=== PATIENT | female | born 1965 | race Caucasian/White ===

== ENCOUNTER 2016-12-24 13:33 | Emergency (ER) | payer BC ==
--- NOTE | 2016-12-24 14:39 | UC ---
Upper Extremity HPI - HPI Summary HPI Summary: 51 year old female presents with right elbow pain/swelling - History of Current Complaint Chief Complaint: UCUpperExtremity Stated Complaint: RIGHT ARM INJURY Time Seen by Provider: 12/24/16 14:35 Hx Obtained From: Patient Hx Last Menstrual Period: n/a Onset/Duration: Sudden Onset Severity Initially: Moderate Severity Currently: Moderate Pain Scale Used: 0-10 Numeric - 5 Character: Sharp, Throbbing Aggravating Factor(s): Movement, Lifting, Flexion, Extension - Allergies/Home Medications Allergies/Adverse Reactions: Allergies Allergy/AdvReac Type Severity Reaction Status Date / Time Clarithromycin [From Biaxin] Allergy See Comment Verified 12/24/16 14:33 Penicillins Allergy Unknown Verified 12/24/16 14:33 Reaction Details Home Medications: Home Medications Ibuprofen TAB* [Motrin TAB* 600 MG] 600 mg PO Q8H PRN 12/24/16 [History Confirmed 12/24/16] PMH/Surg Hx/FS Hx/Imm Hx Previously Healthy: Yes Other History Of: Negative For: HIV, Hepatitis B, Hepatitis C, Anticoagulant Therapy - Surgical History Surgical History: Yes Surgery Procedure, Year, and Place: c-sect - Family History Known Family History: Positive: Cardiac Disease, Hypertension - Social History Alcohol Use: None Substance Use Type: None Smoking Status (MU): Heavy Every Day Tobacco Smoker Type: Cigarettes Amount Used/How Often: 1 ppd Length of Time of Smoking/Using Tobacco: 30 YRS - Immunization History Most Recent Influenza Vaccination: [id number] Review of Systems Constitutional: Negative Skin: Negative Eyes: Negative ENT: Negative Respiratory: Negative Cardiovascular: Negative Gastrointestinal: Negative Genitourinary: Negative Motor: Negative Neurovascular: Negative Musculoskeletal: Other: - right elbow pain Neurological: Negative Psychological: Negative All Other Systems Reviewed And Are Negative: Yes Physical Exam Triage Information Reviewed: Yes Vital Signs: Initial Vital Signs Temp 36.8 C 12/24/16 14:29 Pulse 79 12/24/16 14:29 Resp 16 12/24/16 14:29 Pulse Ox 99 12/24/16 14:29 Vital Signs Reviewed: Yes Eye Exam: Normal ENT Exam: Normal Dental Exam: Normal Neck exam: Normal Neck: Positive: 1 Respiratory Exam: Normal Cardiovascular Exam: Normal Abdominal Exam: Normal Musculoskeletal: Positive: Other: - right elbow pain Neurological Exam: Normal Psychological Exam: Normal Skin Exam: Normal Upper Extremity Course/Dx - Differential Dx/Diagnosis Provider Diagnoses: right tennis elbow Discharge - Discharge Plan Condition: Stable Disposition: HOME Prescriptions: Meloxicam [Mobic] 7.5 mg PO BID PC #30 tab Patient Education Materials: Tennis Elbow (ED) Referrals: Katia Mancia PA [Primary Care Provider] - [facility] Physical therapy,PT [Medical Doctor] -
[2016-12-24 14:40] VITALS: BP 130/58
== END 2016-12-24 14:52 | disposition home or self-care (01) ==
LOC: UCCORT 13:33
DX: M77.11 Lateral epicondylitis, right elbow (principal); Z88.0 Allergy status to penicillin; F17.210 Nicotine dependence, cigarettes, uncomplicated
CPT/HCPCS: 99213; G0463

== ENCOUNTER 2017-01-02 08:34 | Emergency (ER) | payer BC ==
[2017-01-02 08:47] VITALS: BP 133/59
--- NOTE | 2017-01-02 09:09 | UC ---
Respiratory Complaint HPI - HPI Summary HPI Summary: Right sinus pain. She had a sinus infection two months ago. She has a mild cough. There is right face pain over the maxilla. - History of Current Complaint Chief Complaint: UCRespiratory Stated Complaint: SINUS Hx Obtained From: Patient Hx Last Menstrual Period: n/a ?: No Onset/Duration: Gradual Onset, Lasting Days Timing: Constant Severity Initially: Moderate Severity Currently: Moderate Character: Cough: Nonproductive Aggravating Factors: Deep Breaths, Recumbent Position Alleviating Factors: OTC Meds Associated Signs And Symptoms: Positive: URI, Nasal Congestion. Negative: Fever - Allergies/Home Medications Allergies/Adverse Reactions: Allergies Allergy/AdvReac Type Severity Reaction Status Date / Time Clarithromycin [From Biaxin] Allergy See Comment Verified 01/02/17 08:43 Penicillins Allergy Unknown Verified 01/02/17 08:43 Reaction Details Home Medications: Home Medications Ibuprofen TAB* [Advil TAB*] 600 mg PO Q6H PRN 01/02/17 [History Confirmed ] PMH/Surg Hx/FS Hx/Imm Hx Previously Healthy: No - prior sinus infection. Other History Of: Negative For: HIV, Hepatitis B, Hepatitis C, Anticoagulant Therapy - Surgical History Surgical History: Yes Surgery Procedure, Year, and Place: , 1988, [place] - Family History Known Family History: Positive: Cardiac Disease, Hypertension - Social History Lives: With Family Alcohol Use: None Substance Use Type: None Smoking Status (MU): Heavy Every Day Tobacco Smoker Type: Cigarettes Amount Used/How Often: 1 PPD Length of Time of Smoking/Using Tobacco: Since Age 13 Household Exposure Type: Cigarettes - Immunization History Most Recent Influenza Vaccination: Not the Season Review of Systems ENT: Sinus Congestion, Sinus Pain/Tenderness Respiratory: Cough All Other Systems Reviewed And Are Negative: Yes Physical Exam Triage Information Reviewed: Yes Appearance: Well-Appearing, No Pain Distress, Well-Nourished Vital Signs: Initial Vital Signs Temp 98.2 F 01/02/17 08:41 Pulse 86 01/02/17 08:41 Resp 18 01/02/17 08:41 BP 133/59 01/02/17 08:41 Pulse Ox 97 01/02/17 08:41 Vital Signs Reviewed: Yes Eyes: Positive: Conjunctiva Clear ENT: Positive: Nasal congestion, TMs normal, Other: - right maxillary sinus tenderness. Neck exam: Normal Neck: Positive: Supple, Nontender, No Lymphadenopathy Respiratory Exam: Normal Respiratory: Positive: Chest non-tender, Lungs clear, Normal breath sounds, No respiratory distress, No accessory muscle use, Respiratory distress Cardiovascular: Positive: RRR, No Murmur, Pulses Normal, Brisk Capillary Refill Abdomen Description: Positive: Nontender, No Organomegaly, Soft Musculoskeletal: Positive: Strength Intact, ROM Intact, No Edema Neurological: Positive: Alert, Muscle Tone Normal, Fatigued Skin: Negative: rashes UC Diagnostic Evaluation - Laboratory O2 Sat by Pulse Oximetry: 97 Respiratory Course/Dx - Differential Dx/Diagnosis Provider Diagnoses: right sinusitis. Discharge - Discharge Plan Condition: Good Disposition: HOME Patient Education Materials: Sinusitis (ED) Referrals: Katia Mancia PA [Primary Care Provider] - If Needed Additional Instructions: OTC decongestants. Nasal irrigation.
== END 2017-01-02 09:18 | disposition home or self-care (01) ==
LOC: UCCORT 08:34
DX: J32.9 Chronic sinusitis, unspecified (principal); F17.210 Nicotine dependence, cigarettes, uncomplicated; Z88.0 Allergy status to penicillin; Z88.1 Allergy status to other antibiotic agents
CPT/HCPCS: 99212; G0463

== ENCOUNTER 2017-02-14 18:05 | Emergency (ER) | payer BC ==
[2017-02-14 18:53] VITALS: BP 142/76
--- NOTE | 2017-02-14 20:04 | UC ---
Lower Extremity/Ankle HPI - HPI Summary HPI Summary: SEEN BY DR HEREDIA SERVICE TODAY, DIAGNOSED WITH PLANTAR FASCIITIS. CONCERN FOR TENDER SOFT TISSUE SWELLING AT HEEL AND ARCH OF FOOT - History of Current Complaint Hx Obtained From: Patient, Family/Health And Human Performance Professor Hx Last Menstrual Period: n/a Onset/Duration: Gradual Onset, Lasting Days Severity Initially: Moderate Severity Currently: Moderate Pain Intensity: 6 Pain Scale Used: 0-10 Numeric Aggravating Factor(s): Standing, Ambulation Able to Bear Weight: Yes - Risk Factors Gout Risk Factors: Negative DVT Risk Factors: Negative Septic Arthritis Risk Factor: Negative <Jeiosn Callahan - Last Filed: 02/14/17 19:59> <Viki Blankenship - Last Filed: 02/14/17 20:06> - History of Current Complaint Chief Complaint: UCLowerExtremity Stated Complaint: FOOT PAIN Time Seen by Provider: 02/14/17 19:24 - Allergies/Home Medications Allergies/Adverse Reactions: Allergies Allergy/AdvReac Type Severity Reaction Status Date / Time Clarithromycin [From Biaxin] Allergy See Comment Verified 02/14/17 18:52 Penicillins Allergy Unknown Verified 02/14/17 18:52 Reaction Details PMH/Surg Hx/FS Hx/Imm Hx Previously Healthy: Yes Other History Of: Negative For: HIV, Hepatitis B, Hepatitis C, Anticoagulant Therapy - Surgical History Surgical History: Yes Surgery Procedure, Year, and Place: , 1989, [place] - Family History Known Family History: Positive: Cardiac Disease, Hypertension - Social History Occupation: Employed Full-time Lives: With Family Alcohol Use: None Substance Use Type: None Smoking Status (MU): Heavy Every Day Tobacco Smoker Type: Cigarettes Amount Used/How Often: 1 PPD Length of Time of Smoking/Using Tobacco: Since Age 13 Household Exposure Type: Cigarettes Cessation Counseling: Patient Advised to Stop - Immunization History Most Recent Influenza Vaccination: Not the 2017/2017 Season <Jeison Callahan - Last Filed: 02/14/17 19:59> Review of Systems Constitutional: Negative Skin: Negative Eyes: Negative ENT: Negative Respiratory: Negative Cardiovascular: Negative Gastrointestinal: Negative Genitourinary: Negative Motor: Negative Neurovascular: Negative Musculoskeletal: Arthralgia, Edema, Myalgia Neurological: Negative Psychological: Negative Is Patient Immunocompromised?: No All Other Systems Reviewed And Are Negative: Yes <Jeison Callahan - Last Filed: 02/14/17 19:59> Physical Exam Triage Information Reviewed: Yes Appearance: Well-Appearing, Well-Nourished, Pain Distress Vital Signs: Initial Vital Signs Temp 98.2 F 02/14/17 18:47 Pulse 98 02/14/17 18:47 Resp 16 02/14/17 18:47 BP 142/76 02/14/17 18:47 Pulse Ox 99 02/14/17 18:47 Vital Signs Reviewed: Yes Eye Exam: Normal ENT Exam: Normal ENT: Positive: Normal ENT inspection, Hearing grossly normal, Pharynx normal Dental Exam: Normal Neck exam: Normal Neck: Positive: Supple, Nontender, No Lymphadenopathy Respiratory Exam: Normal Respiratory: Positive: Chest non-tender, Lungs clear, Normal breath sounds, No respiratory distress, No accessory muscle use Cardiovascular Exam: Normal Cardiovascular: Positive: RRR, No Murmur, Pulses Normal Abdominal Exam: Normal Musculoskeletal: Positive: Strength Intact, ROM Intact, Edema @ - HEEL AND ARCH OF RIGHT FOOT. TENDER IRREGULAR SOFT TISSUE SWELLING; NO ERYTHEMA OR LESIONS., Other: <Jeison Callahan - Last Filed: 02/14/17 19:59> Vital Signs: Initial Vital Signs Temp 98.2 F 02/14/17 18:47 Pulse 98 02/14/17 18:47 Resp 16 02/14/17 18:47 BP 142/76 02/14/17 18:47 Pulse Ox 99 02/14/17 18:47 <Viki Blankenship - Last Filed: 02/14/17 20:06> Lower Extremity Course/Dx - Differential Dx/Diagnosis Differential Diagnosis/HQI/PQRI: Sprain, Strain Provider Diagnoses: RIGHT PLANTAR FASCIITIS; HEEL AND ARCH OF RIGHT FOOT. TENDER IRREGULAR SOFT TISSUE SWELLING HEEL AND ARCH OF RIGHT FOOT. <Jeison Callahan - Last Filed: 02/14/17 19:59> Discharge <Jeison Callahan - Last Filed: 02/14/17 19:59> <Viki Blankenship - Last Filed: 02/14/17 20:06> - Discharge Plan Condition: Stable Disposition: HOME Prescriptions: HYDROcodone/ACETAMIN 5-325 MG* [Rye 5-325 TAB*] 1 tab PO Q8H PRN #12 tab MDD three tabs PRN Reason: Pain Patient Education Materials: Arthralgia (ED), Swollen Joint (ED) Referrals: Katia Mancia PA [Primary Care Provider] - Hi Dorman MD [Medical Doctor] - Images Feet (Multiple View): 1 - HEEL AND ARCH OF RIGHT FOOT. TENDER IRREGULAR SOFT TISSUE SWELLING; NO ERYTHEMA OR LESIONS. <Jeison Callahan - Last Filed: 02/14/17 19:59> Attestation Statement User Type: Provider - I was available for consult. This patient was seen by the [facility]. The patient was not presented to, seen by, or examined by me. -Essence <Viki Blankenship - Last Filed: 02/14/17 20:06>
== END 2017-02-14 19:52 | disposition home or self-care (01) ==
LOC: UCCORT 18:05
DX: M72.2 Plantar fascial fibromatosis (principal); M79.89 Other specified soft tissue disorders
CPT/HCPCS: 99213; G0463

== ENCOUNTER 2017-08-05 19:41 | Emergency (ER) | payer BC ==
[2017-08-05 20:35] VITALS: BP 145/77
--- NOTE | 2017-08-05 21:08 | UC ---
Skin Complaint HPI - HPI Summary HPI Summary: Per pharmacist per diem "c/o redness, swelling and pain to the outer edge of her fingernail on her thumb of R hand for the past 2 days. She states she pulled a hang nail the day before. No red streaks leading away from the thumb or fever. " - History of Current Complaint Chief Complaint: UCUpperExtremity Time Seen by Provider: 08/05/17 21:07 Stated Complaint: RT THUMB COMPLAINT Hx Last Menstrual Period: n/a Pain Intensity: 4 - Allergy/Home Medications Allergies/Adverse Reactions: Allergies Allergy/AdvReac Type Severity Reaction Status Date / Time Penicillins Allergy Unknown Unknown Verified 08/05/17 20:40 Reaction Details MS Clarithromycin AdvReac See Comment Verified 08/05/17 20:37 [From Biaxin] PMH/Surg Hx/FS Hx/Imm Hx Other History Of: Negative For: HIV, Hepatitis B, Hepatitis C, Anticoagulant Therapy - Surgical History Surgical History: Yes Surgery Procedure, Year, and Place: , 1989, [place] - Family History Known Family History: Positive: Cardiac Disease, Hypertension - Social History Alcohol Use: None Substance Use Type: None Smoking Status (MU): Heavy Every Day Tobacco Smoker Type: Cigarettes Amount Used/How Often: 1 PPD Length of Time of Smoking/Using Tobacco: Since Age 13 Household Exposure Type: Cigarettes - Immunization History Most Recent Influenza Vaccination: Not the Season Physical Exam Vital Signs: Initial Vital Signs Temp 98.6 F 08/05/17 20:31 Pulse 77 08/05/17 20:31 Resp 17 08/05/17 20:31 BP 145/77 08/05/17 20:31 Pulse Ox 99 08/05/17 20:31 Discharge - Sign-Out/Discharge Documenting (check all that apply): Discharge/Admit/Transfer - Discharge Plan Condition: Stable Disposition: HOME Patient Education Materials: Foot Contusion (ED) Referrals: Katia Mancia PA [Primary Care Provider] - 6 Days - Billing Disposition and Condition Condition: STABLE Disposition: HOME
== END 2017-08-05 21:23 | disposition left against medical advice (07) ==
LOC: UCCORT 19:41
DX: R29.91 Unspecified symptoms and signs involving the musculoskeletal system (principal); Z53.21 Procedure and treatment not carried out due to patient leaving prior to being seen by health care provider

== ENCOUNTER 2017-11-17 16:51 | Emergency (ER) | payer BC ==
[2017-11-17 17:19] VITALS: BP 132/50
--- NOTE | 2017-11-17 17:45 | UC ---
Throat Pain/Nasal Mode HPI - HPI Summary HPI Summary: 52 y/o female presents to the urgent care c/o sinus pressure and pain w/ clear nasal discharge since yesterday. Pt reports her daughter started w/ similar symptoms. This morning she has left side facial pressure w/ +PND and COOK. She took and Ibuprofen 600mg PO to alleviate symptoms. Pt denies fever, cough, ST, SOB, chest pain, abdominal pain, N/V/D - History of Current Complaint Chief Complaint: UCGeneralIllness Stated Complaint: COUGH, SINUSES, HEADACHE Time Seen by Provider: 11/17/17 17:09 Hx Obtained From: Patient Hx Last Menstrual Period: n/a Onset/Duration: Gradual Onset, Lasting Days - 2 days, Still Present Severity: Mild Pain Intensity: 2 Pain Scale Used: 0-10 Numeric Cough: None Associated Signs & Symptoms: Positive: Sinus Discomfort, Nasal Discharge - clear Related History: Seasonal Allergies - Epiglottits Risk Factors Epiglottis Risk Factors: Negative - Allergies/Home Medications Allergies/Adverse Reactions: Allergies Allergy/AdvReac Type Severity Reaction Status Date / Time Penicillins Allergy Unknown Unknown Verified 08/05/17 20:40 Reaction Details clarithromycin [From Biaxin] AdvReac See Comment Verified 11/17/17 17:14 PMH/Surg Hx/FS Hx/Imm Hx Previously Healthy: Yes - Pt denies PMHX Other History Of: Negative For: HIV, Hepatitis B, Hepatitis C, Anticoagulant Therapy - Surgical History Surgical History: Yes Surgery Procedure, Year, and Place: , 1989, [place] - Family History Known Family History: Positive: Cardiac Disease, Hypertension, Renal Disease - Social History Occupation: Employed Full-time Lives: With Family Alcohol Use: None Substance Use Type: None Smoking Status (MU): Heavy Every Day Tobacco Smoker Type: Cigarettes Amount Used/How Often: 1 1/2 PPD Length of Time of Smoking/Using Tobacco: Since Age 14 Household Exposure Type: Cigarettes - Immunization History Most Recent Influenza Vaccination: Not the 2016/2017 Season Review of Systems Constitutional: Negative Skin: Negative Eyes: Negative ENT: Nasal Discharge - clear, Sinus Congestion, Sinus Pain/Tenderness, Other - + PND Respiratory: Negative Cardiovascular: Negative Gastrointestinal: Negative Genitourinary: Negative Motor: Negative Neurovascular: Negative Musculoskeletal: Negative Neurological: Headache Psychological: Negative Is Patient Immunocompromised?: No All Other Systems Reviewed And Are Negative: Yes Physical Exam - Summary Physical Exam Summary: Vitals: reviewed General: Well developed, well-nourished obese female patient with NAD. Head and face: Normocephalic and atraumatic, Positive tenderness over the frontal and maxillary sinuses.. Eyes: PERRLA, EOMI x 2. Normal conjunctiva. No eye discharge. ENT: Ears and TM with normal limits. Nose: edematous and erythematous nasal mucosa with with clear discharge and erythematous mucosa. Pharynx with erythema, no exudate. Neck: Supple, no JVD, no carotid bruits and no lymphadenopathy. Lungs: clear, no rales, no rhonchi, no wheezes. CVS: RRR, S1 and S2 present no murmurs or gallops appreciated. Abdomen: soft nontender with positive bowel sounds. Extremities: no edema noted. Neuro: WNL. Skin: warm and dry Triage Information Reviewed: Yes Vital Signs: Initial Vital Signs Temp 97.8 F 11/17/17 17:12 Pulse 88 11/17/17 17:12 Resp 18 11/17/17 17:12 BP 132/50 11/17/17 17:12 Pulse Ox 100 11/17/17 17:12 Throat Pain/Nasal Course/Dx - Course Course Of Treatment: 52 y/o female presents to the urgent care c/o sinus pressure and pain w/ clear nasal discharge since yesterday. Pt reports her daughter started w/ similar symptoms. This morning she has left side facial pressure w/ +PND and COOK. She took and Ibuprofen 600mg PO to alleviate symptoms. Pt denies fever, cough, ST, SOB, chest pain, abdominal pain, N/V/D. Hx obtained. Pt w/ rhinosinusitis on examination. Pt was given medication listed below. The patient was advised to stay away of allergens. D/C instructions explained. The patient understands and agrees. - Differential Dx/Diagnosis Differential Diagnosis/HQI/PQRI: Laryngitis, Pharyngitis, Sinusitis, URI Provider Diagnoses: 1- Rhinosinusitis. 2- Headache Discharge - Sign-Out/Discharge Documenting (check all that apply): Patient Departure - D/c home All imaging exams completed and their final reports reviewed: No Studies - Discharge Plan Condition: Stable Disposition: HOME Prescriptions: Fluticasone NASAL SPRAY 50MCG* [Flonase NASAL SPRAY 50MCG*] 2 spray BOTH NARES DAILY #1 btl Loratadine/Pseudoephedrine [Loratadine-D 12 Hour Tablet] 1 each PO BID #30 tab.er.12h Patient Education Materials: Rhinosinusitis (ED) Referrals: Katia Mancia PA [Primary Care Provider] - 3 Days Additional Instructions: 1- Please increase fluid intake and rest. 2-Use Flonase as directed to help drain fluid. Use saline drops as directed to clear sinuses 3-Take Ibuprofen or Acetaminophen for fever and pain. 4-Return to the clinic or f/u w/ your PCP in 3 days if symptoms do not improve for further management. - Billing Disposition and Condition Condition: STABLE Disposition: Home - Attestation Statements Provider Attestation: Per institutional requirements, I have reviewed the chart, however, I was not consulted specifically or made aware of this patient by the midlevel provider. I did not personally evaluate, interact with , or disposition this patient.
== END 2017-11-17 17:54 | disposition home or self-care (01) ==
LOC: UCCORT 16:51
DX: J32.9 Chronic sinusitis, unspecified (principal); R51 Headache; Z88.0 Allergy status to penicillin; Z88.1 Allergy status to other antibiotic agents; F17.210 Nicotine dependence, cigarettes, uncomplicated
CPT/HCPCS: 99212; G0463

== ENCOUNTER 2019-02-19 18:33 | Emergency (ER) | payer BC ==
[2019-02-19 19:15] VITALS: BP 126/82
--- NOTE | 2019-02-19 20:24 | UC ---
Throat Pain/Nasal Mode HPI - HPI Summary HPI Summary: 53-year-old woman comes in with a chief complaint of 4 days of upper respiratory tract infection symptoms. She's got sinus pressure rhinorrhea and sinus congestion. Also having right ear pain. Minimal sore throat. No cough or chest congestion. Has been taking ibuprofen for the symptoms. - History of Current Complaint Chief Complaint: UCRespiratory Stated Complaint: SINUS COMPLAINT, HEADACHE Time Seen by Provider: 02/19/19 19:59 Hx Last Menstrual Period: n/a Pain Intensity: 4 - Allergies/Home Medications Allergies/Adverse Reactions: Allergies Allergy/AdvReac Type Severity Reaction Status Date / Time Penicillins Allergy Unknown Unknown Verified 02/19/19 19:12 Reaction Details clarithromycin [From Biaxin] AdvReac See Comment Verified 02/19/19 19:12 PMH/Surg Hx/FS Hx/Imm Hx Previously Healthy: Yes Other History Of: Negative For: HIV, Hepatitis B, Hepatitis C, Anticoagulant Therapy - Surgical History Surgical History: Yes Surgery Procedure, Year, and Place: , 1988, [place] - Family History Known Family History: Positive: Cardiac Disease, Hypertension, Renal Disease - Social History Alcohol Use: None Substance Use Type: None Smoking Status (MU): Heavy Every Day Tobacco Smoker Type: Cigarettes Amount Used/How Often: 1 1/2 PPD Length of Time of Smoking/Using Tobacco: Since Age 14 Household Exposure Type: Cigarettes - Immunization History Most Recent Influenza Vaccination: Not the 2016/2017 Season Review of Systems All Other Systems Reviewed And Are Negative: Yes Constitutional: Positive: Other - SEE HPI Skin: Positive: Negative Eyes: Positive: Negative ENT: Positive: Sore Throat, Ear Ache, Nasal Discharge, Sinus Congestion, Sinus Pain/Tenderness Respiratory: Positive: Negative Cardiovascular: Positive: Negative Gastrointestinal: Positive: Negative Motor: Positive: Negative Neurovascular: Positive: Negative Musculoskeletal: Positive: Negative Neurological: Positive: Negative Psychological: Positive: Negative Is Patient Immunocompromised?: No Physical Exam Triage Information Reviewed: Yes Appearance: No Pain Distress, Well-Nourished, Ill-Appearing - MILD Vital Signs: Initial Vital Signs Temp 96.1 F 02/19/19 19:12 Pulse 73 02/19/19 19:12 Resp 16 02/19/19 19:12 BP 126/82 02/19/19 19:12 Pulse Ox 100 02/19/19 19:12 Vital Signs Reviewed: Yes Eye Exam: Normal Eyes: Positive: Conjunctiva Clear ENT: Positive: Pharyngeal erythema, Nasal congestion, Nasal drainage, Sinus tenderness, Other - Cerumen impaction of the right ear canal. Neck: Positive: Supple Respiratory: Positive: Lungs clear, Normal breath sounds, No respiratory distress Cardiovascular: Positive: RRR Musculoskeletal: Positive: Strength Intact, ROM Intact Neurological: Positive: Alert, Muscle Tone Normal Psychological: Positive: Normal Response To Family, Age Appropriate Behavior Skin Exam: Normal Throat Pain/Nasal Course/Dx - Course Course Of Treatment: DISCUSSED VIRAL VERSES BACTERIAL INFECTIONS AND THE ROLE OF ANTIBIOTICS. THE PATIENT PREFERS TO BE ON ANTIBIOTICS AT THIS TIME. Right ear was irrigated by nursing with successful removal of cerumen. - Differential Dx/Diagnosis Provider Diagnosis: Sinusitis, Impacted cerumen, right ear Discharge ED - Sign-Out/Discharge Documenting (check all that apply): Patient Departure All imaging exams completed and their final reports reviewed: No Studies - Discharge Plan Condition: Stable Disposition: HOME Prescriptions: Azithromyxin CLAUDIA (NF) [Z-Claudia (Zithromax) 250 mg tabs #6] 2 tab PO .TODAY, THEN 1 DAILY #6 tab Patient Education Materials: Sinusitis (ED), Cerumen Impaction (ED) Referrals: Katia Mancia PA [Primary Care Provider] - Additional Instructions: FOLLOW UP WITH YOUR DOCTOR IF NOT COMPLETELY IMPROVED. GET REEVALUATED SOONER IF NOT IMPROVING OR WORSE OR ANY QUESTIONS OR CONCERNS. - Billing Disposition and Condition Condition: STABLE Disposition: Home
== END 2019-02-19 20:38 | disposition home or self-care (01) ==
LOC: UCCORT 18:33
DX: J32.9 Chronic sinusitis, unspecified (principal); H61.21 Impacted cerumen, right ear; J02.9 Acute pharyngitis, unspecified; Z88.0 Allergy status to penicillin; Z88.1 Allergy status to other antibiotic agents; F17.210 Nicotine dependence, cigarettes, uncomplicated
CPT/HCPCS: 99213; G0463

== ENCOUNTER 2019-04-29 13:53 | Emergency (ER) | payer BC ==
[2019-04-29 15:33] VITALS: BP 102/69
--- NOTE | 2019-04-29 15:48 | UC ---
Throat Pain/Nasal Mode HPI - HPI Summary HPI Summary: 54-year-old female who has had cold symptoms for 2 weeks and now with sinus pressure, postnasal drainage. She is a smoker. - History of Current Complaint Chief Complaint: UCRespiratory Stated Complaint: COUGH/SINUS Time Seen by Provider: 04/29/19 15:13 Hx Obtained From: Patient Hx Last Menstrual Period: n/a ?: No Onset/Duration: Gradual Onset, Lasting Weeks Severity: Mild Pain Intensity: 3 Cough: None Associated Signs & Symptoms: Positive: Sinus Discomfort, Nasal Discharge Related History: Smoking - Allergies/Home Medications Allergies/Adverse Reactions: Allergies Allergy/AdvReac Type Severity Reaction Status Date / Time Penicillins Allergy Unknown Unknown Verified 04/29/19 15:26 Reaction Details clarithromycin [From Biaxin] AdvReac See Comment Verified 04/29/19 15:26 Home Medications: Home Medications Ibuprofen TAB* [Advil TAB*] 600 mg PO Q6H PRN 04/29/19 [History Confirmed ] Sulfamethox/Trimethoprim DS* [Bactrim DS 800/160 TAB*] 1 tab PO BID 10 Days #20 tab 04/29/19 [Rx] PMH/Surg Hx/FS Hx/Imm Hx Previously Healthy: Yes Other History Of: Negative For: HIV, Hepatitis B, Hepatitis C, Anticoagulant Therapy - Surgical History Surgical History: Yes Surgery Procedure, Year, and Place: , 1989, [place] - Family History Known Family History: Positive: Cardiac Disease, Hypertension, Renal Disease - Social History Alcohol Use: None Substance Use Type: None Smoking Status (MU): Heavy Every Day Tobacco Smoker Type: Cigarettes Amount Used/How Often: 1 1/2 PPD Length of Time of Smoking/Using Tobacco: Since Age 14 Household Exposure Type: Cigarettes - Immunization History Most Recent Influenza Vaccination: Not the 2017/2017 Season Review of Systems All Other Systems Reviewed And Are Negative: Yes ENT: Positive: Nasal Discharge, Sinus Congestion, Sinus Pain/Tenderness Is Patient Immunocompromised?: No Physical Exam Triage Information Reviewed: Yes Appearance: Well-Appearing, No Pain Distress, Well-Nourished Vital Signs: Initial Vital Signs Temp 99 F 04/29/19 15:27 Pulse 81 04/29/19 15:27 Resp 18 04/29/19 15:27 BP 102/69 04/29/19 15:27 Pulse Ox 98 04/29/19 15:27 Vital Signs Reviewed: Yes Eyes: Positive: Conjunctiva Clear ENT: Positive: Pharynx normal - Yellow postnasal drainage, Nasal congestion, Nasal drainage - Yellow nasal coryza, TMs normal, Sinus tenderness - Tender over the maxillary sinuses bilaterally, Uvula midline Neck: Positive: Supple, Nontender, No Lymphadenopathy Respiratory: Positive: Lungs clear, Normal breath sounds, No respiratory distress, No accessory muscle use Cardiovascular: Positive: RRR, No Murmur, Pulses Normal, Brisk Capillary Refill Musculoskeletal Exam: Normal Neurological Exam: Normal Psychological Exam: Normal Skin Exam: Normal Throat Pain/Nasal Course/Dx - Course Course Of Treatment: Patient is comfortable here and in no distress. After consultation with Dr. Del Toro I'm going to treat her sinusitis with Bactrim DS one tab by mouth twice a day 10 days. Definite follow-up with her primary care provider if no improvement in 5-7 days. - Differential Dx/Diagnosis Provider Diagnosis: Sinusitis Discharge ED - Sign-Out/Discharge Documenting (check all that apply): Patient Departure All imaging exams completed and their final reports reviewed: No Studies - Discharge Plan Condition: Good Disposition: HOME Prescriptions: Sulfamethox/Trimethoprim DS* [Bactrim DS 800/160 TAB*] 1 tab PO BID 10 Days #20 tab Patient Education Materials: Sinusitis (ED) Referrals: Katia Mancia PA [Primary Care Provider] - Additional Instructions: Increase fluids, [id number] cold medicines as directed. Take the Bactrim with food. Definite follow-up with your primary care provider if no improvement in 5-7 days. Always a good plan to stop smoking. - Billing Disposition and Condition Condition: GOOD Disposition: Home
== END 2019-04-29 15:57 | disposition home or self-care (01) ==
LOC: UCCORT 13:53
DX: J32.9 Chronic sinusitis, unspecified (principal); Z88.0 Allergy status to penicillin; Z88.1 Allergy status to other antibiotic agents; F17.210 Nicotine dependence, cigarettes, uncomplicated
CPT/HCPCS: 99212; G0463

== ENCOUNTER 2019-05-31 18:45 | Emergency (ER) | payer SELFPAY ==
[2019-05-31 19:08] VITALS: BP 138/66
--- NOTE | 2019-05-31 19:30 | UC ---
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 no w/n/t. she can pronate and supinate -has some bruising today w/ tenderness at the site - History of Current Complaint Chief Complaint: UCUpperExtremity Stated Complaint: RT ARM INJURY - WC Time Seen by Provider: 05/31/19 19:08 Hx Last Menstrual Period: n/a Pain Intensity: 3 - Allergies/Home Medications Allergies/Adverse Reactions: Allergies Allergy/AdvReac Type Severity Reaction Status Date / Time Penicillins Allergy Unknown Unknown Verified 05/31/19 19:08 Reaction Details clarithromycin [From Biaxin] AdvReac See Comment Verified 05/31/19 19:08 Home Medications: Home Medications Ibuprofen TAB* [Advil TAB*] 600 mg PO Q6H PRN 04/29/19 [History Confirmed ] PMH/Surg Hx/FS Hx/Imm Hx Previously Healthy: Yes Other History Of: Negative For: HIV, Hepatitis B, Hepatitis C, Anticoagulant Therapy - Surgical History Surgical History: Yes Surgery Procedure, Year, and Place: , 1989, [facility] - Family History Known Family History: Positive: Cardiac Disease, Hypertension, Renal Disease - Social History Alcohol Use: None Substance Use Type: None Smoking Status (MU): Heavy Every Day Tobacco Smoker Type: Cigarettes Amount Used/How Often: 1 1/2 PPD Length of Time of Smoking/Using Tobacco: Since Age 14 Household Exposure Type: Cigarettes - Immunization History Most Recent Influenza Vaccination: Not the 2016/2017 Season Review of Systems All Other Systems Reviewed And Are Negative: Yes Constitutional: Positive: Negative. Negative: Fever, Chills, Fatigue Skin: Positive: Bruising Eyes: Positive: Negative ENT: Positive: Negative Respiratory: Positive: Negative Cardiovascular: Positive: Negative Gastrointestinal: Positive: Negative Motor: Positive: Decreased ROM Neurovascular: Positive: Negative. Negative: Decreased Sensation, Decreased Pulses Musculoskeletal: Positive: Arthralgia Neurological/Mental Status: Positive: Negative. Negative: Weakness, Paresthesia , Numbness Psychological: Positive: Negative Is Patient Immunocompromised?: No Physical Exam Triage Information Reviewed: Yes Completion Of Physical Exam Limited Due To: Other - I wore a surgical mask and gloves entire time. Pt had mask on most of encounter Appearance: Well-Appearing, No Pain Distress, Well-Nourished, Ill-Appearing - very pleasant Vital Signs: Initial Vital Signs Temp 98 F 05/31/19 19:04 Pulse 91 05/31/19 19:04 Resp 16 05/31/19 19:04 BP 138/66 05/31/19 19:04 Pulse Ox 98 05/31/19 19:04 Vital Signs Reviewed: Yes ENT Exam: Normal Respiratory Exam: Normal Respiratory: Positive: Lungs clear Cardiovascular Exam: Normal Cardiovascular: Positive: RRR Musculoskeletal: Positive: Other: - right extensor ulnar arm with golf ball sized area of slight welling and bruising. 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 sensation intactto light touch. CR brisk. + 2 radial and ulnar. slight swelling. Neurological Exam: Normal Psychological Exam: Normal Skin: Positive: Other - see above - mild bruise. Upper Extremity Course/Dx - Course Course Of Treatment: Rt forearm xray evaluated by me shows no frx or displacement. neg report. will be read by RAD in AM. pt understands this. -ice, rest, cock up splint. - Differential Dx/Diagnosis Differential Diagnosis/HQI/PQRI: Contusion Provider Diagnosis: Contusion of right forearm Discharge ED - Sign-Out/Discharge Documenting (check all that apply): Patient Departure All imaging exams completed and their final reports reviewed: No - Discharge Plan Condition: Stable Disposition: HOME Patient Education Materials: Contusion in Adults (ED) Referrals: Katia Mancia PA [Primary Care Provider] - 2 Weeks Additional Instructions: The xray is evaluated by me and I do not appreciate a fracture. A radiologist will be reading it in the morning and you should be getting a call if there is a discrepancy from my evaluation. Rest, ice and tylenol or ibuprofen (for short course). You deny any contraindication to ibuprofen such as high blood pressure , , kindey disease or ulcers. If the pain does not resolve in 1-2 weeks, consideration to re-xray may be indicated. Ice for 20 mins on/20mins off with a towel barrier. The cock up splint may help support it. - Billing Disposition and Condition Condition: STABLE Disposition: Home
--- NOTE | 2019-06-01 09:31 | UC ---
- Progress Note Progress Note: RADIOLOGY REPORT REVIEWED. NO EVIDENCE FOR FRACTURE. NO CHANGE IN MANAGEMENT. Course/Dx - Diagnoses Provider Diagnoses: Contusion of right forearm Discharge ED - Sign-Out/Discharge Documenting (check all that apply): Post-Discharge Follow Up All imaging exams completed and their final reports reviewed: Yes - Discharge Plan Condition: Stable Disposition: HOME Patient Education Materials: Contusion in Adults (ED) Referrals: Katia Mancia PA [Primary Care Provider] - 2 Weeks Additional Instructions: The xray is evaluated by me and I do not appreciate a fracture. A radiologist will be reading it in the morning and you should be getting a call if there is a discrepancy from my evaluation. Rest, ice and tylenol or ibuprofen (for short course). You deny any contraindication to ibuprofen such as high blood pressure , , kindey disease or ulcers. If the pain does not resolve in 1-2 weeks, consideration to re-xray may be indicated. Ice for 20 mins on/20mins off with a towel barrier. The cock up splint may help support it. - Billing Disposition and Condition Condition: STABLE Disposition: Home
== END 2019-05-31 20:10 | disposition home or self-care (01) ==
LOC: UCCORT 18:45
DX: S50.11XA Contusion of right forearm, initial encounter (principal); W19.XXXA Unspecified fall, initial encounter; Y92.9 Unspecified place or not applicable; Y99.0 Civilian activity done for income or pay; Z88.1 Allergy status to other antibiotic agents; Z88.0 Allergy status to penicillin; F17.210 Nicotine dependence, cigarettes, uncomplicated
CPT/HCPCS: 99212; G0463

== ENCOUNTER 2022-12-31 11:48 | Inpatient (IN) ==
[~2022-12-31 11:48] MED LIST: CEFEPIME IVPB SCH; NS 0.9% IVPB SCH; Piperacillin/Tazobac ADVAN 3.375 GM in NS 0.9% 100 ml BAG 100 ML IV SCH
[2022-12-31] MEDS ORDERED: Cefepime 2 GM VIAL ONE (12:42)
[2022-12-31 12:44] LABS: Urine Appearance Turbid; Urine Bilirubin Negative (Negative); Urine Blood 3+ (Negative); Urine Color Amber; Urine Glucose Negative (Negative); Urine Ketones 2+ (Negative); Urine Nitrite Positive (Negative); Urine Protein 2+(100 mg/dL) (Negative); Urine Specific Gravity 1.017 (1.002-1.030); Urine Urobilinogen Positive (Negative)
[2022-12-31 12:52] LABS: Hematocrit 27.1 % (35-45); Hemoglobin 9.4 g/dL (11.5-14.3); Mean Corpuscular Hemoglobin 35.9 pg (27-33); Mean Corpuscular Hgb Conc 34.7 g/dL (31-36); Mean Corpuscular Volume 103.4 fL (80-97); Red Blood Count 2.62 10^6/uL (3.63-4.92); Red Cell Distribution Width 19.3 % (12-17); White Blood Count 0.3 10^3/uL (3.8-11.8)
[2022-12-31 12:53] LABS: Urine Bacteria 2+ (Absent); Urine Granular Casts Present (Absent); Urine Red Blood Cell 2+(6-10/hpf) (Absent); Urine Squamous Epithelial Cell Present (Absent); Urine Transitional Epithelial Present (Absent); Urine White Blood Cell 3+(>20/hpf) (Absent)
[2022-12-31 12:54] LABS: Albumin 3.4 g/dL (3.2-5.2); Calcium 8.5 mg/dL (8.6-10.3); Magnesium 1.4 mg/dL (1.9-2.7); Potassium 3.1 mmol/L (3.5-5.0); Total Bilirubin 1.1 mg/dL (0.2-1.0)
[2022-12-31 13:00] LABS: Albumin/Globulin Ratio 1.3 (1-3); Creatinine, Serum 0.85 mg/dL (0.51-0.95); Globulin 2.7 g/dL (2-4); Total Protein 6.1 g/dL (6.4-8.9); eGFR CKD-EPI 79.9 (>60)
[2022-12-31 13:15] LABS: ABS Lymphocytes 0.3 10^3/uL (1.0-4.8); Eosinophil % 0.7 %; Lymphocyte % 92.1 %; Mean Platelet Volume 8.9 fL (7.5-11.2); Nucleated Red Blood Cells % 0.5 %/100WBC (0.0-0.8); Platelet Count 19 10^3/uL (150-450)
[2022-12-31] MEDS ORDERED: Magnesium Sulf 4 GM/100 ML IV 4,000 MG/100 ML BAG IVPB ONE ×2 (13:40→14:52)
[2022-12-31] MEDS ORDERED: Senna TAB 8.6 mg TAB PO PRN (16:24)
[2022-12-31] MEDS ORDERED: Lactated Ringers 1000 ml BAG 1,000 ML IV ONE (16:59)
[2022-12-31] MEDS: Nicotine PATCH 21 MG/24 HR PATCH TRANSDERM SCH (17:43)
[2022-12-31] MEDS: NS 0.9% 1000 ml BAG 1,000 ML IV SCH (18:40)
[2022-12-31] MEDS: Ondansetron 4 mg VIAL 2 MG/ML 2 ml VIAL IV PRN ×2 (18:49→22:47)
[2022-12-31] MEDS: Polyethylene Glycol 3350 17 GM PACKET PO SCH (21:14)
[2022-12-31] MEDS: Cefepime 2 GM in Dextrose 2 GM/50 ML BAG IV SCH (21:16)
[2023-01-01] MEDS: NS 0.9% 1000 ml BAG 1,000 ML IV SCH ×3 (05:03→23:08)
[2023-01-01] MEDS: Cefepime 2 GM in Dextrose 2 GM/50 ML BAG IV SCH ×3 (05:03→20:33)
[2023-01-01 05:48] LABS: Albumin 2.9 g/dL (3.2-5.2); Albumin/Globulin Ratio 1.5 (1-3); Calcium 7.7 mg/dL (8.6-10.3); Creatinine, Serum 0.69 mg/dL (0.51-0.95); Magnesium 1.7 mg/dL (1.9-2.7); Potassium 3.4 mmol/L (3.5-5.0); Total Bilirubin 0.8 mg/dL (0.2-1.0); Total Protein 4.9 g/dL (6.4-8.9); eGFR CKD-EPI 101.2 (>60)
[2023-01-01 06:31] LABS: ABS Lymphocytes 0.3 10^3/uL (1.0-4.8); Eosinophil % 0.7 %; Hematocrit 21.7 % (35-45); Hemoglobin 7.6 g/dL (11.5-14.3); Mean Corpuscular Volume 102.7 fL (80-97); Mean Platelet Volume 8.8 fL (7.5-11.2); Nucleated Red Blood Cells % 1.3 %/100WBC (0.0-0.8); Platelet Count 12 10^3/uL (150-450); Red Blood Count 2.11 10^6/uL (3.63-4.92); Red Cell Distribution Width 18.7 % (12-17); White Blood Count 0.3 10^3/uL (3.8-11.8)
[2023-01-01] MEDS: Ondansetron 4 mg VIAL 2 MG/ML 2 ml VIAL IV PRN ×2 (07:55→14:08)
[2023-01-01] MEDS: Nicotine PATCH 21 MG/24 HR PATCH TRANSDERM SCH (07:57)
[2023-01-01] MEDS: Polyethylene Glycol 3350 17 GM PACKET PO SCH (08:00)
[2023-01-01] MEDS ORDERED: Polyethylene Glycol 3350 17 GM PACKET PO PRN (11:09)
[2023-01-01] MEDS ORDERED: Magnesium Sulfate 2 gm BAG 2 GM/50 ML BAG IVPB ONE (11:09)
[2023-01-01] MEDS: Potassium Chlor 20 meq TAB.ER PO SCH ×2 (12:01→14:03)
[2023-01-01 13:08] LABS: Ferritin 781.4 ng/mL (11-307)
[2023-01-02] MEDS: Cefepime 2 GM in Dextrose 2 GM/50 ML BAG IV SCH ×3 (05:05→20:23)
[2023-01-02 05:38] LABS: Calcium 7.6 mg/dL (8.6-10.3); Creatinine, Serum 0.47 mg/dL (0.51-0.95); Magnesium 1.5 mg/dL (1.9-2.7); Potassium 3.2 mmol/L (3.5-5.0)
[2023-01-02 05:57] LABS: ABS Lymphocytes 0.2 10^3/uL (1.0-4.8); Eosinophil % 0.8 %; Hematocrit 20.4 % (35-45); Hemoglobin 7.2 g/dL (11.5-14.3); Lymphocyte % 71.7 %; Mean Corpuscular Hemoglobin 36.2 pg (27-33); Mean Corpuscular Hgb Conc 35.4 g/dL (31-36); Mean Corpuscular Volume 102.4 fL (80-97); Mean Platelet Volume 9.7 fL (7.5-11.2); Platelet Count 8 10^3/uL (150-450); Red Blood Count 1.99 10^6/uL (3.63-4.92); Red Cell Distribution Width 18.8 % (12-17); White Blood Count 0.3 10^3/uL (3.8-11.8)
[2023-01-02] MEDS ORDERED: Magnesium Sulf 4 GM/100 ML IV 4,000 MG/100 ML BAG IVPB ONE (07:40)
[2023-01-02] MEDS: Potassium Chlor 20 meq TAB.ER PO SCH ×3 (08:36→12:17)
[2023-01-02] MEDS: Nicotine PATCH 21 MG/24 HR PATCH TRANSDERM SCH (08:36)
[2023-01-02] MEDS: NS 0.9% 1000 ml BAG 1,000 ML IV SCH ×2 (08:53→17:30)
[2023-01-02] MEDS ORDERED: Vancomycin 1,500 MG in NS 0.9% 250 ml 250 ML IVPB ONE (09:30)
[2023-01-02] MEDS ORDERED: Vancomycin per Pharmacy 1 EA NOTE FOLLOW UP SCH (10:00)
[2023-01-02 11:47] LABS: Platelet Count 19 10^3/uL (150-450)
[2023-01-02] MEDS: Vancomycin 1,250 MG in NS 0.9% 250 ml 250 ML IVPB SCH (22:05)
[2023-01-03] MEDS: NS 0.9% 1000 ml BAG 1,000 ML IV SCH ×2 (01:43→11:07)
[2023-01-03] MEDS: Cefepime 2 GM in Dextrose 2 GM/50 ML BAG IV SCH ×3 (05:07→20:18)
[2023-01-03 05:41] LABS: C Reactive Protein 353.58 mg/L (<8.01); Calcium 7.6 mg/dL (8.6-10.3); Creatinine, Serum 0.48 mg/dL (0.51-0.95); Magnesium 1.5 mg/dL (1.9-2.7); Potassium 3.2 mmol/L (3.5-5.0); eGFR CKD-EPI 110.4 (>60)
[2023-01-03 06:18] LABS: ABS Lymphocytes 0.2 10^3/uL (1.0-4.8); ABS Neutrophils 0.3 10^3/uL (1.5-7.6); Anisocytosis 1+; Eosinophil % 0.6 %; Hematocrit 20.1 % (35-45); Lymphocyte % 37.8 %; Macrocytosis 1+; Mean Corpuscular Hemoglobin 35.9 pg (27-33); Mean Corpuscular Hgb Conc 35.1 g/dL (31-36); Mean Corpuscular Volume 102.3 fL (80-97); Mean Platelet Volume 8.6 fL (7.5-11.2); Nucleated Red Blood Cells % 0.5 %/100WBC (0.0-0.8); Platelet Count 15 10^3/uL (150-450); Red Blood Count 1.96 10^6/uL (3.63-4.92); Red Cell Distribution Width 19.1 % (12-17); Tear Drop Cells 1+; White Blood Count 0.6 10^3/uL (3.8-11.8)
[2023-01-03] MEDS ORDERED: Magnesium Sulf 4 GM/100 ML IV 4,000 MG/100 ML BAG IVPB ONE (07:52)
[2023-01-03] MEDS: Potassium Chlor 20 meq TAB.ER PO SCH ×4 (08:39→16:46)
[2023-01-03] MEDS: Nicotine PATCH 21 MG/24 HR PATCH TRANSDERM SCH (08:39)
[2023-01-03] MEDS ORDERED: IRON VITAMIN C PO SCH (09:00)
[2023-01-03] MEDS: Vancomycin 1,250 MG in NS 0.9% 250 ml 250 ML IVPB SCH ×2 (10:05→21:54)
[2023-01-03] MEDS ORDERED: Potassium Chloride LIQUID 20 MEQ/15 ML LIQUID PO SCH (12:00)
[2023-01-03] MEDS: Nystatin TOP POWDER 15 GM BTL TOPICAL SCH ×2 (14:34→20:22)
[2023-01-04] MEDS: NS 0.9% 1000 ml BAG 1,000 ML IV SCH (00:59)
[2023-01-04] MEDS: Cefepime 2 GM in Dextrose 2 GM/50 ML BAG IV SCH ×3 (04:31→20:07)
[2023-01-04 05:25] LABS: Calcium 7.7 mg/dL (8.6-10.3); Creatinine, Serum 0.52 mg/dL (0.51-0.95); Magnesium 1.6 mg/dL (1.9-2.7); Potassium 3.3 mmol/L (3.5-5.0); eGFR CKD-EPI 108.3 (>60)
[2023-01-04 06:52] LABS: ABS Lymphocytes 0.3 10^3/uL (1.0-4.8); ABS Monocytes 0.1 10^3/uL (0.0-0.9); ABS Neutrophils 0.9 10^3/uL (1.5-7.6); Eosinophil % 0.3 %; Lymphocyte % 20.7 %; Mean Corpuscular Hemoglobin 35.9 pg (27-33); Mean Corpuscular Hgb Conc 34.9 g/dL (31-36); Mean Corpuscular Volume 102.8 fL (80-97); Mean Platelet Volume 8.7 fL (7.5-11.2); Nucleated Red Blood Cells % 0.1 %/100WBC (0.0-0.8); Platelet Count 16 10^3/uL (150-450); Red Blood Count 1.94 10^6/uL (3.63-4.92); Red Cell Distribution Width 19.7 % (12-17); White Blood Count 1.3 10^3/uL (3.8-11.8)
[2023-01-04] MEDS ORDERED: Magnesium Sulf 4 GM/100 ML IV 4,000 MG/100 ML BAG IVPB ONE (07:19)
[2023-01-04] MEDS: Potassium Chlor 20 meq TAB.ER PO SCH ×3 (08:25→11:41)
[2023-01-04] MEDS: Nicotine PATCH 21 MG/24 HR PATCH TRANSDERM SCH (08:27)
[2023-01-04] MEDS: Nystatin TOP POWDER 15 GM BTL TOPICAL SCH ×3 (08:30→20:13)
[2023-01-04] MEDS ORDERED: Vancomycin Trough Check NOTE FOLLOW UP ONE (09:30)
[2023-01-04 10:43] LABS: Creatinine, Serum 0.51 mg/dL (0.51-0.95); eGFR CKD-EPI 108.8 (>60)
[2023-01-04 10:56] LABS: Vancomycin Trough 10.2 mcg/mL
[2023-01-04] MEDS: Vancomycin 1,250 MG in NS 0.9% 250 ml 250 ML IVPB SCH (11:42)
[2023-01-05] MEDS: Cefepime 2 GM in Dextrose 2 GM/50 ML BAG IV SCH ×3 (05:11→19:48)
[2023-01-05 05:37] LABS: Hematocrit 21.3 % (35-45); Hemoglobin 7.4 g/dL (11.5-14.3); Mean Corpuscular Hemoglobin 35.4 pg (27-33); Mean Corpuscular Hgb Conc 34.6 g/dL (31-36); Mean Corpuscular Volume 102.3 fL (80-97); Mean Platelet Volume 9.3 fL (7.5-11.2); Platelet Count 25 10^3/uL (150-450); Red Blood Count 2.08 10^6/uL (3.63-4.92); Red Cell Distribution Width 19.1 % (12-17); White Blood Count 2.1 10^3/uL (3.8-11.8)
[2023-01-05 05:50] LABS: Calcium 7.9 mg/dL (8.6-10.3); Magnesium 1.5 mg/dL (1.9-2.7); Potassium 3.8 mmol/L (3.5-5.0)
[2023-01-05 05:55] LABS: C Reactive Protein 250.64 mg/L (<8.01); Creatinine, Serum 0.48 mg/dL (0.51-0.95); eGFR CKD-EPI 110.4 (>60)
[2023-01-05 06:12] LABS: ABS Lymphocytes 0.5 10^3/uL (1.0-4.8); ABS Monocytes 0.2 10^3/uL (0.0-0.9); ABS Neutrophils 1.4 10^3/uL (1.5-7.6); ABS Nucleated RBC 0.01 10^3/ul; Eosinophil % 0.3 %; Lymphocyte % 24.4 %; Nucleated Red Blood Cells % 0.3 %/100WBC (0.0-0.8)
[2023-01-05] MEDS: Nicotine PATCH 21 MG/24 HR PATCH TRANSDERM SCH (09:38)
[2023-01-05] MEDS ORDERED: NS 0.9% 1000 ml BAG 1,000 ML IV ONE (10:46)
[2023-01-05] MEDS ORDERED: Magnesium Sulf 4 GM/100 ML IV 4,000 MG/100 ML BAG IVPB ONE (10:46)
[2023-01-05] MEDS: Nystatin TOP POWDER 15 GM BTL TOPICAL SCH ×3 (11:08→20:01)
[2023-01-05] MEDS ORDERED: Iohexol 350 (CONTRAST) 500 ML MDV IV ONE (11:56)
[2023-01-05] MEDS ORDERED: Metoprolol Tartrate 5 mg VIAL 5 ml VIAL (1 mg/ml) IV ONE (15:06)
[2023-01-06] MEDS ORDERED: Alteplase (CATHFLO) 2 MG VIAL IV ONE (01:19)
[2023-01-06 01:45] LABS: Hematocrit 25.1 % (35-45); Hemoglobin 8.8 g/dL (11.5-14.3)
[2023-01-06] MEDS ORDERED: Metoprolol Tartrate 5 mg VIAL 5 ml VIAL (1 mg/ml) IV ONE (06:06)
[2023-01-06] MEDS: Cefepime 2 GM in Dextrose 2 GM/50 ML BAG IV SCH ×3 (06:22→21:20)
[2023-01-06 06:39] LABS: Hematocrit 25.6 % (35-45); Hemoglobin 9.1 g/dL (11.5-14.3); Mean Corpuscular Hemoglobin 34.8 pg (27-33); Mean Corpuscular Hgb Conc 35.8 g/dL (31-36); Mean Corpuscular Volume 97.3 fL (80-97); Red Blood Count 2.63 10^6/uL (3.63-4.92); Red Cell Distribution Width 19.6 % (12-17); White Blood Count 2.8 10^3/uL (3.8-11.8)
[2023-01-06 06:55] LABS: Calcium 7.8 mg/dL (8.6-10.3); Magnesium 1.6 mg/dL (1.9-2.7); Potassium 3.1 mmol/L (3.5-5.0)
[2023-01-06 07:01] LABS: Creatinine, Serum 0.52 mg/dL (0.51-0.95); eGFR CKD-EPI 108.3 (>60)
[2023-01-06 07:13] LABS: ABS Lymphocytes 0.7 10^3/uL (1.0-4.8); ABS Monocytes 0.3 10^3/uL (0.0-0.9); ABS Neutrophils 1.8 10^3/uL (1.5-7.6); ABS Nucleated RBC 0.01 10^3/ul; Anisocytosis 1+; Eosinophil % 0.3 %; Lymphocyte % 23.6 %; Mean Platelet Volume 9.4 fL (7.5-11.2); Nucleated Red Blood Cells % 0.2 %/100WBC (0.0-0.8); Platelet Count 34 10^3/uL (150-450)
[2023-01-06] MEDS ORDERED: Magnesium Sulf 4 GM/100 ML IV 4,000 MG/100 ML BAG IVPB ONE (08:00)
[2023-01-06] MEDS ORDERED: Lactated Ringers 1000 ml BAG 1,000 ML IV SCH (09:00)
[2023-01-06] MEDS: Potassium Chlor 20 meq TAB.ER PO SCH ×2 (09:29→10:58)
[2023-01-06] MEDS: Nicotine PATCH 21 MG/24 HR PATCH TRANSDERM SCH (09:32)
[2023-01-06] MEDS: Nystatin TOP POWDER 15 GM BTL TOPICAL SCH ×3 (09:36→21:21)
[2023-01-06] MEDS ORDERED: Lidocaine 4% CREAM (LMX) 5 GM TUBE TOPICAL ONE (20:51)
[2023-01-07] MEDS: Acetaminophen IV 1 GM/100ML 1,000 MG/100 ML BAG IV PRN ×4 (02:30→21:23)
[2023-01-07] MEDS ORDERED: Lidocaine 4% CREAM (LMX) 5 GM TUBE TOPICAL ONE (05:00)
[2023-01-07] MEDS: Cefepime 2 GM in Dextrose 2 GM/50 ML BAG IV SCH ×3 (05:39→20:54)
[2023-01-07 06:28] LABS: C Reactive Protein 239.56 mg/L (<8.01); Calcium 7.5 mg/dL (8.6-10.3); Creatinine, Serum 0.62 mg/dL (0.51-0.95); Magnesium 1.8 mg/dL (1.9-2.7); eGFR CKD-EPI 103.8 (>60)
[2023-01-07] MEDS ORDERED: Magnesium Sulf 4 GM/100 ML IV 4,000 MG/100 ML BAG IVPB ONE (07:12)
[2023-01-07] MEDS ORDERED: Vancomycin 1,250 MG in NS 0.9% 250 ml 250 ML IVPB ONE (07:30)
[2023-01-07] MEDS ORDERED: Vancomycin per Pharmacy 1 EA NOTE FOLLOW UP SCH (08:00)
[2023-01-07 09:07] LABS: Phosphorus 1.7 mg/dL (2.5-5.0)
[2023-01-07] MEDS ORDERED: Vancomycin Trough Check NOTE FOLLOW UP ONE (09:30)
[2023-01-07] MEDS: Nicotine PATCH 21 MG/24 HR PATCH TRANSDERM SCH (09:45)
[2023-01-07] MEDS: Potassium Chlor 20 meq TAB.ER PO SCH ×2 (09:47→13:37)
[2023-01-07] MEDS: Nystatin TOP POWDER 15 GM BTL TOPICAL SCH ×3 (09:47→21:28)
[2023-01-07 10:04] LABS: ABS Lymphocytes 0.5 10^3/uL (1.0-4.8); ABS Monocytes 0.4 10^3/uL (0.0-0.9); ABS Neutrophils 3.7 10^3/uL (1.5-7.6); ABS Nucleated RBC 0.01 10^3/ul; Anisocytosis 2+; Eosinophil % 0.1 %; Hematocrit 25.8 % (35-45); Lymphocyte % 10.1 %; Mean Corpuscular Hemoglobin 34.5 pg (27-33); Mean Corpuscular Hgb Conc 35.1 g/dL (31-36); Mean Corpuscular Volume 98.2 fL (80-97); Mean Platelet Volume 10.7 fL (7.5-11.2); Nucleated Red Blood Cells % 0.1 %/100WBC (0.0-0.8); Platelet Count 44 10^3/uL (150-450); Red Blood Count 2.62 10^6/uL (3.63-4.92); Red Cell Distribution Width 19.6 % (12-17); White Blood Count 4.6 10^3/uL (3.8-11.8)
[2023-01-07] MEDS ORDERED: Potassium Phosphate IV 30 MMOL in NS 0.9% 250 ml 250 ML IVPB ONE (10:15)
[2023-01-07] MEDS: NS 0.9% 1000 ml BAG 1,000 ML IV SCH (13:38)
[2023-01-07] MEDS ORDERED: Ondansetron 4 mg VIAL 2 MG/ML 2 ml VIAL IV PRN (16:27)
[2023-01-07] MEDS ORDERED: Iohexol 350 (CONTRAST) 500 ML MDV IV ONE (16:36)
[2023-01-07] MEDS: Vancomycin 1,500 MG in NS 0.9% 250 ml 250 ML IVPB SCH (19:04)
[2023-01-07] MEDS ORDERED: Metoprolol Tartrate 5 mg VIAL 5 ml VIAL (1 mg/ml) IV PRN (21:11)
[2023-01-07 22:12] LABS: Urine Appearance Cloudy; Urine Bilirubin Negative (Negative); Urine Blood 2+ (Negative); Urine Color Yellow; Urine Glucose Negative (Negative); Urine Ketones 1+ (Negative); Urine Nitrite Negative (Negative); Urine Protein Negative (Negative); Urine Specific Gravity 1.044 (1.002-1.030); Urine Urobilinogen Negative (Negative)
[2023-01-07 22:19] LABS: Urine Creatinine Concentration 50.38 mg/dL (20.00-320.00)
[2023-01-07 22:20] LABS: Urine Bacteria Absent (Absent); Urine Red Blood Cell 1+(3-5/hpf) (Absent); Urine Squamous Epithelial Cell Present (Absent); Urine White Blood Cell Absent (Absent)
[2023-01-07 22:30] LABS: Urine Osmo 430 mOsm/kg (150-1150)
[2023-01-07 22:57] LABS: TSH Ultra Thyroid Stim Horm 2.89 mcIU/mL (0.34-5.60)
[2023-01-07 22:59] LABS: Free T4 1.48 ng/dL (0.61-1.12)
[2023-01-08] MEDS: Acetaminophen IV 1 GM/100ML 1,000 MG/100 ML BAG IV PRN ×2 (04:04→14:02)
[2023-01-08] MEDS: Cefepime 2 GM in Dextrose 2 GM/50 ML BAG IV SCH ×2 (05:09→14:33)
[2023-01-08] MEDS: NS 0.9% 1000 ml BAG 1,000 ML IV SCH ×3 (05:18→11:28)
[2023-01-08 05:54] LABS: Albumin 2.4 g/dL (3.2-5.2); Albumin/Globulin Ratio 1.3 (1-3); Calcium 6.3 mg/dL (8.6-10.3); Creatinine, Serum 0.6 mg/dL (0.51-0.95); Globulin 1.8 g/dL (2-4); Magnesium 1.8 mg/dL (1.9-2.7); Potassium 3.4 mmol/L (3.5-5.0); Total Bilirubin 0.8 mg/dL (0.2-1.0); Total Protein 4.2 g/dL (6.4-8.9); eGFR CKD-EPI 104.6 (>60)
[2023-01-08] MEDS: Vancomycin 1,500 MG in NS 0.9% 250 ml 250 ML IVPB SCH ×2 (06:05→19:31)
[2023-01-08] MEDS ORDERED: CALCIUM GLUCONATE 1GM/50ML NS 1 GM/50 ML BAG IV ONE (08:59)
[2023-01-08] MEDS: Nicotine PATCH 21 MG/24 HR PATCH TRANSDERM SCH (09:09)
[2023-01-08] MEDS: Nystatin TOP POWDER 15 GM BTL TOPICAL SCH ×3 (10:09→19:18)
[2023-01-08 10:45] LABS: Hemoglobin 7.9 g/dL (11.5-14.3); Mean Corpuscular Hemoglobin 34.5 pg (27-33); Mean Corpuscular Hgb Conc 34.3 g/dL (31-36); Mean Corpuscular Volume 100.4 fL (80-97); Mean Platelet Volume 11.1 fL (7.5-11.2); Platelet Count 49 10^3/uL (150-450); Red Blood Count 2.29 10^6/uL (3.63-4.92); Red Cell Distribution Width 19.7 % (12-17); White Blood Count 7.7 10^3/uL (3.8-11.8)
[2023-01-08] MEDS ORDERED: metroNIDAZOLE IV 500 MG/100ML 500 MG/100 ML BAG IVPB SCH (11:00)
[2023-01-08 11:17] LABS: ABS Lymphocytes 0.5 10^3/uL (1.0-4.8); ABS Monocytes 0.1 10^3/uL (0.0-0.9); ABS Nucleated RBC 0.01 10^3/ul; Eosinophil % 0.1 %; Nucleated Red Blood Cells % 0.2 %/100WBC (0.0-0.8); RBC Morphology Normal (Normal); Toxic Granulation 1+
[2023-01-08 13:54] LABS: PCO2 Arterial 22 mmHg (35-45); PO2 Arterial 94 mmHg (80-100)
[2023-01-08] MEDS: Vancomycin SOL ORALSYR 50 MG/ML ML PO SCH ×3 (14:02→21:01)
[2023-01-08] MEDS ORDERED: Norepinephrine 4 MG/250mL D5W 4,000 MCG/250 ML BAG IV ONE (14:29)
[2023-01-08] MEDS ORDERED: Anidulafungin 200 MG in NS 0.9% 250 ml 200 ML IVPB ONE (15:00)
[2023-01-08] MEDS: Norepinephrine 4 MG/250mL D5W 4,000 MCG/250 ML BAG IV SCH ×2 (15:07→18:42)
[2023-01-08 15:47] LABS: Albumin 2.3 g/dL (3.2-5.2); Albumin/Globulin Ratio 1.4 (1-3); Calcium 6.5 mg/dL (8.6-10.3); Creatinine, Serum 0.87 mg/dL (0.51-0.95); Globulin 1.7 g/dL (2-4); Magnesium 1.6 mg/dL (1.9-2.7); Potassium 3.7 mmol/L (3.5-5.0); Total Bilirubin 0.8 mg/dL (0.2-1.0); eGFR CKD-EPI 77.7 (>60)
[2023-01-08] MEDS ORDERED: Calcium Gluconate 2 GM in NS 0.9% 100 ml BAG 100 ML IV ONE (16:06)
[2023-01-08] MEDS ORDERED: Magnesium Sulfate 2 gm BAG 2 GM/50 ML BAG IVPB ONE (16:06)
[2023-01-08] MEDS: Meropenem 1 GM PREMIX(*) 1 GM/50 ML BAG IV SCH ×2 (16:18→23:21)
[2023-01-08] MEDS ORDERED: Dextrose 50% Syringe 50 ml 25 GM/50 ML SYRINGE IV PUSH PRN (16:34)
[2023-01-08] MEDS ORDERED: Dextrose 50% Syringe 50 ml 25 GM/50 ML SYRINGE ONE (16:35)
[2023-01-08] MEDS ORDERED: Sodium Phosphate IV 30 MMOL in NS 0.9% 250 ml 250 ML IV ONE (17:00)
[2023-01-08] MEDS: Sulfamethoxazole/Trimeth IV 500 MG in D5W 500 ml BAG 500 ML IVPB SCH (18:23)
[2023-01-08] MEDS: Famotidine IV 10 MG/ML 2 ml VIAL (20 mg) IV SLOW PU SCH (19:16)
[2023-01-09 00:44] LABS: Albumin 2.1 g/dL (3.2-5.2); Albumin/Globulin Ratio 1.3 (1-3); Calcium 6.5 mg/dL (8.6-10.3); Creatinine, Serum 0.77 mg/dL (0.51-0.95); Globulin 1.6 g/dL (2-4); Potassium 3.5 mmol/L (3.5-5.0); Total Bilirubin 1.1 mg/dL (0.2-1.0); Total Protein 3.7 g/dL (6.4-8.9); eGFR CKD-EPI 89.9 (>60)
[2023-01-09] MEDS: Norepinephrine 4 MG/250mL D5W 4,000 MCG/250 ML BAG IV SCH ×5 (01:14→17:09)
[2023-01-09] MEDS: Sulfamethoxazole/Trimeth IV 500 MG in D5W 500 ml BAG 500 ML IVPB SCH ×2 (02:06→10:13)
[2023-01-09] MEDS ORDERED: Vancomycin Trough Check NOTE FOLLOW UP ONE (05:30)
[2023-01-09 06:03] LABS: Hematocrit 20.4 % (35-45); Hemoglobin 7.1 g/dL (11.5-14.3); Mean Corpuscular Hemoglobin 34.1 pg (27-33); Mean Corpuscular Hgb Conc 34.6 g/dL (31-36); Mean Corpuscular Volume 98.7 fL (80-97); Mean Platelet Volume 10.3 fL (7.5-11.2); Platelet Count 53 10^3/uL (150-450); Red Blood Count 2.07 10^6/uL (3.63-4.92); Red Cell Distribution Width 20.1 % (12-17); White Blood Count 8.4 10^3/uL (3.8-11.8)
[2023-01-09 06:19] LABS: Vancomycin Trough 22.3 mcg/mL
[2023-01-09 06:26] LABS: Calcium 6.3 mg/dL (8.6-10.3); Creatinine, Serum 0.86 mg/dL (0.51-0.95); Potassium 3.1 mmol/L (3.5-5.0); eGFR CKD-EPI 78.7 (>60)
[2023-01-09 06:27] LABS: Albumin 2.1 g/dL (3.2-5.2); Albumin/Globulin Ratio 1.4 (1-3); Globulin 1.5 g/dL (2-4); Phosphorus 2.4 mg/dL (2.5-5.0); Total Protein 3.6 g/dL (6.4-8.9)
[2023-01-09] MEDS ORDERED: Magnesium Sulfate 2 gm BAG 2 GM/50 ML BAG IVPB ONE (06:50)
[2023-01-09] MEDS: Vancomycin 1,500 MG in NS 0.9% 250 ml 250 ML IVPB SCH (07:17)
[2023-01-09] MEDS: Meropenem 1 GM PREMIX(*) 1 GM/50 ML BAG IV SCH ×2 (07:21→16:42)
[2023-01-09] MEDS: KCL 20 MEQ/100 ML IVPREMIX 20 MEQ/100 ML BAG IV SCH ×2 (07:21→09:47)
[2023-01-09 07:23] LABS: ABS Lymphocytes 0.3 10^3/uL (1.0-4.8); ABS Monocytes 0.2 10^3/uL (0.0-0.9); ABS Neutrophils 7.8 10^3/uL (1.5-7.6); ABS Nucleated RBC 0.02 10^3/ul; Anisocytosis 2+; Eosinophil % 0.1 %; Nucleated Red Blood Cells % 0.2 %/100WBC (0.0-0.8); Polychromasia 1+
[2023-01-09] MEDS: Vancomycin SOL ORALSYR 50 MG/ML ML PO SCH ×2 (08:39→12:21)
[2023-01-09] MEDS: Nicotine PATCH 21 MG/24 HR PATCH TRANSDERM SCH (08:39)
[2023-01-09] MEDS: Famotidine IV 10 MG/ML 2 ml VIAL (20 mg) IV SLOW PU SCH ×2 (08:39→21:31)
[2023-01-09] MEDS: Nystatin TOP POWDER 15 GM BTL TOPICAL SCH ×3 (08:39→21:31)
[2023-01-09] MEDS: Acetaminophen IV 1 GM/100ML 1,000 MG/100 ML BAG IV PRN (08:57)
[2023-01-09 09:15] LABS: INR 3.37 (0.83-1.13)
[2023-01-09] MEDS ORDERED: Vasopressin 100 UNITS in D5W 250 ml BAG 245 ML IV SCH (09:30)
[2023-01-09] MEDS ORDERED: VASOPRESSIN IVPREMIX BTL 40 UNIT/100 ML BTL IV SCH (09:52)
[2023-01-09] MEDS: Hydrocortisone INJ 100 MG/2ML 2 ML VIAL IV SCH ×3 (09:57→21:31)
[2023-01-09 10:19] LABS: Hepatitis B Surface Antigen Nonreactive (Nonreactive)
[2023-01-09 10:24] LABS: Hepatitis A Ab IgM Negative (Negative)
[2023-01-09 10:25] LABS: Hepatitis B Core IgM Nonreactive (Nonreactive)
[2023-01-09 10:37] LABS: Hepatitis C Antibody Negative (Negative)
[2023-01-09] MEDS ORDERED: Sodium Phosphate IV 30 MMOL in NS 0.9% 250 ml 250 ML IV ONE (11:09)
[2023-01-09 11:17] LABS: Adenovirus Undetected (Undetected); Bordetella parapertussis Undetected (Undetected); Bordetella pertussis Undetected (Undetected); Chlamydophila pneumoniae Undetected (Undetected); Coronavirus 229E Undetected (Undetected); Coronavirus HKU1 Undetected (Undetected); Coronavirus NL63 Undetected (Undetected); Coronavirus OC43 Undetected (Undetected); Human Metapneumovirus Undetected (Undetected); Human Rhinovirus/Enterovirus Undetected (Undetected); Influenza A Undetected (Undetected); Influenza B Undetected (Undetected); Mycoplasmoides pneumoniae Undetected (Undetected); Parainfluenza Virus 1 Undetected (Undetected); Parainfluenza Virus 2 Undetected (Undetected); Parainfluenza Virus 3 Undetected (Undetected); Parainfluenza Virus 4 Undetected (Undetected); Respiratory Syncytial Virus Undetected (Undetected); Specimen Source NASOPHARYNGEAL SWAB
[2023-01-09] MEDS ORDERED: Enoxaparin 40 MG/0.4 ML SYR SUBCUT SCH (13:00)
[2023-01-09] MEDS: Anidulafungin 100 MG in NS 0.9% 100 ml BAG 100 ML IVPB SCH (14:26)
[2023-01-09 14:45] LABS: Immature Retic Fraction 0.59
[2023-01-09 14:48] LABS: RBC Retic Count 2.08 10^6/ul (3.63-4.92)
[2023-01-09 14:57] LABS: Albumin 2.1 g/dL (3.2-5.2); Albumin/Globulin Ratio 1.4 (1-3); Calcium 6.2 mg/dL (8.6-10.3); Creatinine, Serum 1.14 mg/dL (0.51-0.95); Globulin 1.5 g/dL (2-4); Phosphorus 3.5 mg/dL (2.5-5.0); Total Bilirubin 1.1 mg/dL (0.2-1.0); Total Protein 3.6 g/dL (6.4-8.9); eGFR CKD-EPI 56.1 (>60)
[2023-01-09 15:00] LABS: Corrected Retic Count 0.9 % (0.5-2.2); Hematocrit for Retic CNT 20.4 % (35-45)
[2023-01-09] MEDS ORDERED: Oral Rinse (Biotene)(NF) 237 ML or 473 ML ORAL RINSE BTL MT SCH (15:00)
[2023-01-09 15:15] LABS: Folate 12.38 ng/mL (5.90-24.80)
[2023-01-09] MEDS: Albumin Human 25% 25 GM/100 ML BTL IV SCH ×2 (16:41→21:29)
[2023-01-09] MEDS ORDERED: Acetaminophen IV 1 GM/100ML 1,000 MG/100 ML BAG IV PRN (17:00)
[2023-01-09 21:35] LABS: Urine Appearance Cloudy; Urine Bilirubin Negative (Negative); Urine Blood 2+ (Negative); Urine Color Yellow; Urine Glucose 1+(50 mg/dL) (Negative); Urine Ketones Negative (Negative); Urine Nitrite Negative (Negative); Urine Protein 1+(30 mg/dL) (Negative); Urine Specific Gravity 1.013 (1.002-1.030); Urine Urobilinogen Negative (Negative)
[2023-01-09 21:38] LABS: Urine Bacteria 1+ (Absent); Urine Granular Casts Present (Absent); Urine Red Blood Cell 1+(3-5/hpf) (Absent); Urine Squamous Epithelial Cell Present (Absent); Urine White Blood Cell Trace(0-5/hpf) (Absent)
[2023-01-09 21:45] LABS: Albumin 2.6 g/dL (3.2-5.2); Potassium 3.7 mmol/L (3.5-5.0); Total Bilirubin 1.2 mg/dL (0.2-1.0)
[2023-01-09 21:46] LABS: Calcium 6.2 mg/dL (8.6-10.3)
[2023-01-09 21:55] LABS: Albumin/Globulin Ratio 1.9 (1-3); Creatinine, Serum 1.24 mg/dL (0.51-0.95); Globulin 1.4 g/dL (2-4); eGFR CKD-EPI 50.8 (>60)
[2023-01-10] MEDS: Meropenem 1 GM PREMIX(*) 1 GM/50 ML BAG IV SCH ×4 (00:37→23:20)
[2023-01-10] MEDS: Nicotine PATCH 21 MG/24 HR PATCH TRANSDERM SCH ×2 (01:29→09:17)
[2023-01-10 04:46] LABS: Hematocrit 19.3 % (35-45); Hemoglobin 6.7 g/dL (11.5-14.3); Mean Corpuscular Hemoglobin 33.6 pg (27-33); Mean Corpuscular Hgb Conc 34.4 g/dL (31-36); Mean Corpuscular Volume 97.7 fL (80-97); Platelet Count 48 10^3/uL (150-450); Red Blood Count 1.98 10^6/uL (3.63-4.92); Red Cell Distribution Width 19.9 % (12-17); White Blood Count 11.2 10^3/uL (3.8-11.8)
[2023-01-10 04:51] LABS: INR 3.29 (0.83-1.13)
[2023-01-10 04:59] LABS: Albumin 2.9 g/dL (3.2-5.2); Calcium 6.5 mg/dL (8.6-10.3); Magnesium 2.6 mg/dL (1.9-2.7); Potassium 3.6 mmol/L (3.5-5.0); Total Bilirubin 1.4 mg/dL (0.2-1.0)
[2023-01-10 05:05] LABS: Creatinine, Serum 1.26 mg/dL (0.51-0.95); eGFR CKD-EPI 49.8 (>60)
[2023-01-10 05:08] LABS: ABS Basophils 0.1 10^3/uL (0.0-0.1); ABS Lymphocytes 0.5 10^3/uL (1.0-4.8); ABS Monocytes 0.4 10^3/uL (0.0-0.9); ABS Neutrophils 10.1 10^3/uL (1.5-7.6); ABS Nucleated RBC 0.01 10^3/ul; Lymphocyte % 4.9 %; Nucleated Red Blood Cells % 0.1 %/100WBC (0.0-0.8)
[2023-01-10] MEDS: Hydrocortisone INJ 100 MG/2ML 2 ML VIAL IV SCH ×4 (05:20→21:56)
[2023-01-10] MEDS: Albumin Human 25% 25 GM/100 ML BTL IV SCH ×2 (05:20→10:30)
[2023-01-10 05:45] LABS: Albumin/Globulin Ratio 2.2 (1-3); Globulin 1.3 g/dL (2-4); Phosphorus 3.8 mg/dL (2.5-5.0); Total Protein 4.2 g/dL (6.4-8.9)
[2023-01-10] MEDS ORDERED: Vancomycin Random Level NOTE FOLLOW UP ONE (06:00)
[2023-01-10] MEDS: Famotidine IV 10 MG/ML 2 ml VIAL (20 mg) IV SLOW PU SCH ×2 (08:47→21:55)
[2023-01-10] MEDS: Nystatin TOP POWDER 15 GM BTL TOPICAL SCH ×3 (10:32→21:56)
[2023-01-10 10:48] LABS: Calcium 6.5 mg/dL (8.6-10.3); Creatinine, Serum 1.31 mg/dL (0.51-0.95); Potassium 3.7 mmol/L (3.5-5.0); eGFR CKD-EPI 47.5 (>60)
[2023-01-10 10:50] LABS: Total Bilirubin 1.5 mg/dL (0.2-1.0)
[2023-01-10 11:26] LABS: Calcium 6.7 mg/dL (8.6-10.3); Creatinine, Serum 1.32 mg/dL (0.51-0.95); Potassium 3.5 mmol/L (3.5-5.0); eGFR CKD-EPI 47.1 (>60)
[2023-01-10 11:28] LABS: Albumin 3.1 g/dL (3.2-5.2); Albumin/Globulin Ratio 2.4 (1-3); Globulin 1.3 g/dL (2-4); Total Bilirubin 1.6 mg/dL (0.2-1.0); Total Protein 4.4 g/dL (6.4-8.9)
[2023-01-10] MEDS ORDERED: KCL 20 MEQ/100 ML IVPREMIX 20 MEQ/100 ML BAG IV ONE (11:33)
[2023-01-10] MEDS ORDERED: Calcium Gluconate 2 GM in NS 0.9% 100 ml BAG 100 ML IV ONE (11:37)
[2023-01-10 14:04] LABS: Activated Partial Thrombo Time 59.7 seconds (26.0-38.0); INR 2.97 (0.83-1.13)
[2023-01-10] MEDS ORDERED: Albuterol/Ipratropium NEB.SOL (2.5/0.5 MG) 3 ML NEB.SOLN INH ONE (14:52)
[2023-01-10] MEDS: Anidulafungin 100 MG in NS 0.9% 100 ml BAG 100 ML IVPB SCH (15:14)
[2023-01-10 15:57] LABS: Hematocrit 20.6 % (35-45)
[2023-01-10 17:28] LABS: Creatinine, Serum 1.37 mg/dL (0.51-0.95); Potassium 3.6 mmol/L (3.5-5.0)
[2023-01-10 17:29] LABS: Albumin 3.4 g/dL (3.2-5.2); Albumin/Globulin Ratio 2.8 (1-3); Globulin 1.2 g/dL (2-4); Total Bilirubin 1.8 mg/dL (0.2-1.0); Total Protein 4.6 g/dL (6.4-8.9)
[2023-01-10] MEDS ORDERED: Nicotine PATCH 21 MG/24 HR PATCH TRANSDERM SCH (21:00)
[2023-01-11] MEDS: Hydrocortisone INJ 100 MG/2ML 2 ML VIAL IV SCH ×2 (03:48→09:47)
[2023-01-11 06:58] LABS: Calcium 7.3 mg/dL (8.6-10.3); Creatinine, Serum 1.54 mg/dL (0.51-0.95); Potassium 3.6 mmol/L (3.5-5.0); eGFR CKD-EPI 39.1 (>60)
[2023-01-11 07:04] LABS: Hematocrit 19.9 % (35-45); Hemoglobin 6.9 g/dL (11.5-14.3); Mean Corpuscular Hemoglobin 32.8 pg (27-33); Mean Corpuscular Hgb Conc 34.4 g/dL (31-36); Mean Corpuscular Volume 95.3 fL (80-97); Mean Platelet Volume 10.5 fL (7.5-11.2); Platelet Count 50 10^3/uL (150-450); Red Blood Count 2.09 10^6/uL (3.63-4.92); Red Cell Distribution Width 20.5 % (12-17); White Blood Count 11.8 10^3/uL (3.8-11.8)
[2023-01-11 07:15] LABS: Albumin 3.1 g/dL (3.2-5.2); Albumin/Globulin Ratio 2.4 (1-3); Globulin 1.3 g/dL (2-4); Magnesium 2.5 mg/dL (1.9-2.7); Phosphorus 3.2 mg/dL (2.5-5.0); Total Bilirubin 1.5 mg/dL (0.2-1.0); Total Protein 4.4 g/dL (6.4-8.9)
[2023-01-11] MEDS: Nystatin TOP POWDER 15 GM BTL TOPICAL SCH ×3 (07:34→21:19)
[2023-01-11] MEDS: Meropenem 1 GM PREMIX(*) 1 GM/50 ML BAG IV SCH ×2 (07:34→21:20)
[2023-01-11] MEDS: Famotidine IV 10 MG/ML 2 ml VIAL (20 mg) IV SLOW PU SCH (07:34)
[2023-01-11 07:40] LABS: ABS Basophils 0.1 10^3/uL (0.0-0.1); ABS Lymphocytes 0.8 10^3/uL (1.0-4.8); ABS Monocytes 0.7 10^3/uL (0.0-0.9); ABS Neutrophils 10.2 10^3/uL (1.5-7.6); ABS Nucleated RBC 0.02 10^3/ul; Eosinophil % 0.1 %; Lymphocyte % 6.7 %; Nucleated Red Blood Cells % 0.1 %/100WBC (0.0-0.8)
[2023-01-11] MEDS: Enoxaparin 40 MG/0.4 ML SYR SUBCUT SCH (11:25)
[2023-01-11 13:51] LABS: Cytomegalovirus IgG Antibody Positive (Negative)
[2023-01-11] MEDS: Nicotine PATCH 21 MG/24 HR PATCH TRANSDERM SCH (14:06)
[2023-01-11] MEDS: methylPREDNISolone SOD SUCC 40 mg/ml 1 ml VIAL IV SCH (15:12)
[2023-01-11] MEDS: Anidulafungin 100 MG in NS 0.9% 100 ml BAG 100 ML IVPB SCH (15:12)
[2023-01-11 16:16] LABS: Fungitell Qualitative Result Negative (Negative); Fungitell Quantitative Value <31 pg/mL (<60 pg/mL)
[2023-01-11 17:15] LABS: Copper, S 122 mcg/dL (77-206)
[2023-01-11 23:33] LABS: Aspergillus (Galactomannan) Ag <0.500 index (<0.5)
[2023-01-12] MEDS: Famotidine IV 10 MG/ML 2 ml VIAL (20 mg) IV SLOW PU SCH (09:09)
[2023-01-12] MEDS: Meropenem 1 GM PREMIX(*) 1 GM/50 ML BAG IV SCH (09:09)
[2023-01-12] MEDS: methylPREDNISolone SOD SUCC 40 mg/ml 1 ml VIAL IV SCH (09:09)
[2023-01-12] MEDS: Nystatin TOP POWDER 15 GM BTL TOPICAL SCH ×3 (09:09→21:11)
[2023-01-12] MEDS: Nicotine PATCH 21 MG/24 HR PATCH TRANSDERM SCH (09:10)
[2023-01-12] MEDS: Enoxaparin 40 MG/0.4 ML SYR SUBCUT SCH (11:08)
[2023-01-12 11:22] LABS: Albumin 3.4 g/dL (3.2-5.2); Albumin/Globulin Ratio 2.4 (1-3); Calcium 7.9 mg/dL (8.6-10.3); Creatinine, Serum 1.67 mg/dL (0.51-0.95); Globulin 1.4 g/dL (2-4); Potassium 3.5 mmol/L (3.5-5.0); Total Bilirubin 1.1 mg/dL (0.2-1.0); Total Protein 4.8 g/dL (6.4-8.9); eGFR CKD-EPI 35.5 (>60)
[2023-01-12 12:31] LABS: Hematocrit 20.8 % (35-45); Hemoglobin 7.2 g/dL (11.5-14.3); Mean Corpuscular Hemoglobin 33.3 pg (27-33); Mean Corpuscular Hgb Conc 34.5 g/dL (31-36); Mean Corpuscular Volume 96.5 fL (80-97); Mean Platelet Volume 10.4 fL (7.5-11.2); Platelet Count 61 10^3/uL (150-450); Red Blood Count 2.16 10^6/uL (3.63-4.92); Red Cell Distribution Width 20.6 % (12-17); White Blood Count 11.6 10^3/uL (3.8-11.8)
[2023-01-12 12:59] LABS: ABS Basophils 0.1 10^3/uL (0.0-0.1); ABS Lymphocytes 1.3 10^3/uL (1.0-4.8); ABS Monocytes 1.1 10^3/uL (0.0-0.9); ABS Neutrophils 9.2 10^3/uL (1.5-7.6); ABS Nucleated RBC 0.09 10^3/ul; Lymphocyte % 11.3 %; Nucleated Red Blood Cells % 0.8 %/100WBC (0.0-0.8)
[2023-01-13 06:26] LABS: Hematocrit 19.4 % (35-45); Hemoglobin 6.7 g/dL (11.5-14.3); Mean Corpuscular Hemoglobin 33.7 pg (27-33); Mean Corpuscular Hgb Conc 34.6 g/dL (31-36); Mean Corpuscular Volume 97.5 fL (80-97); Mean Platelet Volume 10.4 fL (7.5-11.2); Platelet Count 69 10^3/uL (150-450); Red Blood Count 1.99 10^6/uL (3.63-4.92)
[2023-01-13 06:50] LABS: Albumin 3.2 g/dL (3.2-5.2); Albumin/Globulin Ratio 2.5 (1-3); Calcium 8.2 mg/dL (8.6-10.3); Creatinine, Serum 1.52 mg/dL (0.51-0.95); Globulin 1.3 g/dL (2-4); Magnesium 2.3 mg/dL (1.9-2.7); Potassium 3.9 mmol/L (3.5-5.0); Total Bilirubin 1.1 mg/dL (0.2-1.0); Total Protein 4.5 g/dL (6.4-8.9); eGFR CKD-EPI 39.8 (>60)
[2023-01-13 06:55] LABS: ABS Lymphocytes 1.2 10^3/uL (1.0-4.8); ABS Monocytes 1.7 10^3/uL (0.0-0.9); Anisocytosis 3+; Eosinophil % 0.1 %; Nucleated Red Blood Cells % 0.9 %/100WBC (0.0-0.8); Polychromasia 1+
[2023-01-13] MEDS: Famotidine IV 10 MG/ML 2 ml VIAL (20 mg) IV SLOW PU SCH (10:48)
[2023-01-13] MEDS: Enoxaparin 40 MG/0.4 ML SYR SUBCUT SCH (10:48)
[2023-01-13] MEDS: methylPREDNISolone SOD SUCC 125 mg 2 ML VIAL IV SCH (10:50)
[2023-01-13] MEDS: Nicotine PATCH 21 MG/24 HR PATCH TRANSDERM SCH (11:02)
[2023-01-13] MEDS: Nystatin TOP POWDER 15 GM BTL TOPICAL SCH ×3 (11:02→23:50)
[2023-01-14 05:58] LABS: Hemoglobin 8.9 g/dL (11.5-14.3); Mean Corpuscular Hemoglobin 32.5 pg (27-33); Mean Corpuscular Hgb Conc 34.2 g/dL (31-36); Mean Corpuscular Volume 95.1 fL (80-97); Mean Platelet Volume 11.1 fL (7.5-11.2); Platelet Count 94 10^3/uL (150-450); Red Blood Count 2.74 10^6/uL (3.63-4.92); Red Cell Distribution Width 21.1 % (12-17); White Blood Count 15.1 10^3/uL (3.8-11.8)
[2023-01-14 06:15] LABS: Albumin 3.4 g/dL (3.2-5.2); Albumin/Globulin Ratio 2.1 (1-3); Calcium 8.6 mg/dL (8.6-10.3); Creatinine, Serum 1.55 mg/dL (0.51-0.95); Globulin 1.6 g/dL (2-4); Magnesium 2.3 mg/dL (1.9-2.7); Potassium 4.2 mmol/L (3.5-5.0); Total Bilirubin 1.2 mg/dL (0.2-1.0); eGFR CKD-EPI 38.8 (>60)
[2023-01-14 06:35] LABS: ABS Basophils 0.1 10^3/uL (0.0-0.1); ABS Eosinophils 0.2 10^3/uL (0.0-0.5); ABS Lymphocytes 1.9 10^3/uL (1.0-4.8); ABS Monocytes 3.1 10^3/uL (0.0-0.9); ABS Neutrophils 9.8 10^3/uL (1.5-7.6); ABS Nucleated RBC 0.19 10^3/ul; Anisocytosis 3+; Eosinophil % 1.1 %; Lymphocyte % 12.8 %; Macrocytosis 1+; Nucleated Red Blood Cells % 1.3 %/100WBC (0.0-0.8); Polychromasia 1+
[2023-01-14] MEDS: methylPREDNISolone SOD SUCC 125 mg 2 ML VIAL IV SCH (08:56)
[2023-01-14] MEDS: Famotidine IV 10 MG/ML 2 ml VIAL (20 mg) IV SLOW PU SCH (08:56)
[2023-01-14] MEDS: Nystatin TOP POWDER 15 GM BTL TOPICAL SCH ×3 (08:57→19:58)
[2023-01-14] MEDS: Nicotine PATCH 21 MG/24 HR PATCH TRANSDERM SCH (08:57)
[2023-01-14] MEDS: Enoxaparin 40 MG/0.4 ML SYR SUBCUT SCH (10:23)
[2023-01-15] MEDS: Albuterol/Ipratropium NEB.SOL (2.5/0.5 MG) 3 ML NEB.SOLN INH PRN ×2 (00:02→13:22)
[2023-01-15] MEDS ORDERED: Haloperidol 5 mg/ml SDV IV/IM 5 MG/ML AMP IV SLOW PU ONE (04:31)
[2023-01-15 06:56] LABS: Albumin 3.4 g/dL (3.2-5.2); Albumin/Globulin Ratio 2.3 (1-3); Calcium 8.4 mg/dL (8.6-10.3); Creatinine, Serum 1.37 mg/dL (0.51-0.95); Globulin 1.5 g/dL (2-4); Potassium 4.4 mmol/L (3.5-5.0); Total Bilirubin 1.2 mg/dL (0.2-1.0); Total Protein 4.9 g/dL (6.4-8.9)
[2023-01-15 07:10] LABS: ABS Eosinophils 0.4 10^3/uL (0.0-0.5); ABS Lymphocytes 2.4 10^3/uL (1.0-4.8); ABS Nucleated RBC 0.76 10^3/ul; Anisocytosis 3+; Eosinophil % 1.9 %; Hematocrit 28.4 % (35-45); Hemoglobin 9.4 g/dL (11.5-14.3); Lymphocyte % 12.6 %; Mean Corpuscular Hemoglobin 32.4 pg (27-33); Mean Corpuscular Hgb Conc 33.2 g/dL (31-36); Mean Corpuscular Volume 97.7 fL (80-97); Mean Platelet Volume 11.2 fL (7.5-11.2); Platelet Count 113 10^3/uL (150-450); Polychromasia 1+; Red Blood Count 2.91 10^6/uL (3.63-4.92); Red Cell Distribution Width 21.5 % (12-17); White Blood Count 18.8 10^3/uL (3.8-11.8)
[2023-01-15] MEDS ORDERED: Vancomycin 1,500 MG in NS 0.9% 250 ml 250 ML IVPB ONE (08:55)
[2023-01-15 08:56] LABS: PCO2 Arterial 29 mmHg (35-45)
[2023-01-15 09:02] LABS: PO2 Arterial 58 mmHg (80-100)
[2023-01-15] MEDS ORDERED: Vancomycin per Pharmacy 1 EA NOTE FOLLOW UP PRN (09:04)
[2023-01-15 09:20] LABS: C Reactive Protein 8.84 mg/L (<8.01)
[2023-01-15] MEDS ORDERED: Iodixanol (CONTRAST) 320 MG/ML 100 ML SDV IV ONE (09:23)
[2023-01-15 09:41] LABS: Activated Partial Thrombo Time 24.5 seconds (26.0-38.0); INR 1.71 (0.83-1.13)
[2023-01-15] MEDS: Cefepime 2 GM in Dextrose 2 GM/50 ML BAG IV SCH ×2 (11:50→23:03)
[2023-01-15] MEDS: methylPREDNISolone SOD SUCC 125 mg 2 ML VIAL IV SCH (12:04)
[2023-01-15] MEDS: Nicotine PATCH 21 MG/24 HR PATCH TRANSDERM SCH (12:34)
[2023-01-15] MEDS: Enoxaparin 40 MG/0.4 ML SYR SUBCUT SCH (12:35)
[2023-01-15] MEDS: Nystatin TOP POWDER 15 GM BTL TOPICAL SCH ×3 (12:47→21:00)
[2023-01-15] MEDS ORDERED: Metoprolol Tartrate 5 mg VIAL 5 ml VIAL (1 mg/ml) IV ONE (13:20)
[2023-01-15] MEDS ORDERED: Metoprolol Tartrate 5 mg VIAL 5 ml VIAL (1 mg/ml) ONE (13:21)
[2023-01-15] MEDS ORDERED: Morphine 2 MG/ML SYRINGE IV ONE (13:55)
[2023-01-15] MEDS ORDERED: Morphine 2 MG/ML SYRINGE ONE (13:58)
[2023-01-15] MEDS ORDERED: Lactated Ringers 1000 ml BAG IV.FLUID IV ONE ×2 (14:38→15:00)
[2023-01-15] MEDS ORDERED: Lactated Ringers 1000 ml BAG 250 ML IV ONE (15:00)
[2023-01-15] MEDS ORDERED: Phenylephrine 40 mcg/mL 10mL (400mcg) SYRINGE IV PRN ×2 (15:37→15:39)
[2023-01-15] MEDS ORDERED: Propofol 10 mg/ml 100 ML BTL 1,000 MG/100 ML BTL ONE (15:39)
[2023-01-15] MEDS ORDERED: Norepinephrine 4 MG/250mL D5W 4,000 MCG/250 ML BAG IV ONE (15:39)
[2023-01-15] MEDS ORDERED: Lactated Ringers 1000 ml BAG 500 ML IV ONE (15:45)
[2023-01-15] MEDS ORDERED: PHENYLEPHRINE DRIP IVPREMIX 50 MG/250 ML BAG IV SCH (16:00)
[2023-01-15] MEDS ORDERED: Rocuronium 50 mg VIAL 10 mg/ml 5 ml VIAL (50 mg) ONE (16:10)
[2023-01-15] MEDS ORDERED: fentaNYL 100 mcg/2 ml 50 MCG/ML VIAL ONE (16:18)
[2023-01-15] MEDS ORDERED: Rocuronium 50 mg VIAL 10 mg/ml 5 ml VIAL (50 mg) IV ONE (17:19)
[2023-01-15] MEDS ORDERED: Lactated Ringers 1000 ml BAG 1,000 ML IV ONE ×2 (17:21→17:33)
[2023-01-15] MEDS ORDERED: fentaNYL 100 mcg/2 ml 50 MCG/ML VIAL IV SLOW PU ONE (17:21)
[2023-01-15] MEDS ORDERED: Pantoprazole VIAL 40 MG VIAL IV SCH (18:00)
[2023-01-15] MEDS ORDERED: Norepinephrine 4 MG/250mL D5W 4,000 MCG/250 ML BAG IV SCH (18:00)
[2023-01-15] MEDS ORDERED: Metoprolol Tartrate 5 mg VIAL 5 ml VIAL (1 mg/ml) IV PRN (18:02)
[2023-01-15] MEDS: Phenylephrine DRIP 0.2 MG/ML in NS 0.9% 250 ML (PHA mix) IV SCH (18:28)
[2023-01-15] MEDS: Propofol 10 mg/ml 100 ML BTL 1,000 MG/100 ML BTL IV SCH ×3 (18:30→22:50)
[2023-01-15 20:04] LABS: PCO2 Arterial 45 mmHg (35-45); PO2 Arterial 110 mmHg (80-100)
[2023-01-15 20:07] LABS: Urine Appearance Cloudy; Urine Bilirubin Negative (Negative); Urine Blood 1+ (Negative); Urine Color Yellow; Urine Glucose Negative (Negative); Urine Ketones Negative (Negative); Urine Nitrite Negative (Negative); Urine Protein 2+(100 mg/dL) (Negative); Urine Urobilinogen Negative (Negative)
[2023-01-15 20:10] LABS: Urine Bacteria 1+ (Absent); Urine Red Blood Cell 1+(3-5/hpf) (Absent); Urine Squamous Epithelial Cell Present (Absent); Urine White Blood Cell 1+(6-10/hpf) (Absent)
[2023-01-15] MEDS: Chlorhexidine MOUTHWASH 0.12% 15 ML UDC TOPICAL SCH ×2 (20:18→23:07)
[2023-01-15] MEDS ORDERED: Dexmedetomidine 1,000 MCG in NS 0.9% 250 ml 240 ML IV SCH (21:00)
[2023-01-15] MEDS: Pantoprazole VIAL 40 MG VIAL IV SCH (22:50)
[2023-01-15] MEDS: Hydrocortisone INJ 100 MG/2ML 2 ML VIAL IV SCH (22:50)
[2023-01-16] MEDS: Acetaminophen IV 1 GM/100ML 1,000 MG/100 ML BAG IV SCH ×4 (00:04→22:38)
[2023-01-16] MEDS: Vancomycin 750 MG in NS 0.9% 250 ML IVPB SCH ×2 (01:31→13:22)
[2023-01-16] MEDS: Propofol 10 mg/ml 100 ML BTL 1,000 MG/100 ML BTL IV SCH ×6 (03:37→22:20)
[2023-01-16] MEDS: Chlorhexidine MOUTHWASH 0.12% 15 ML UDC TOPICAL SCH ×6 (03:43→23:20)
[2023-01-16] MEDS: fentaNYL 100 mcg/2 ml 50 MCG/ML VIAL IV SLOW PU PRN ×2 (03:50→19:50)
[2023-01-16 05:26] LABS: ALT 96 U/L (7-52); Albumin 2.8 g/dL (3.2-5.2); Alkaline Phosphatase 175 U/L (35-149); Anion Gap 9 mmol/L (2-16); Blood Urea Nitrogen 41 mg/dL (6-24); CO2 Carbon Dioxide 23 mmol/L (22-32); Calcium 7.7 mg/dL (8.6-10.3); Chloride 112 mmol/L (101-111); Creatinine, Serum 1.28 mg/dL (0.51-0.95); Globulin 1.4 g/dL (2-4); Glucose 113 mg/dL (70-100); Sodium 144 mmol/L (135-145); Total Bilirubin 2.3 mg/dL (0.2-1.0); Total Protein 4.2 g/dL (6.4-8.9); eGFR CKD-EPI 48.9 (>60)
[2023-01-16 05:40] LABS: ABS Basophils 0.2 10^3/uL (0.0-0.1); ABS Eosinophils 0.3 10^3/uL (0.0-0.5); ABS Lymphocytes 0.4 10^3/uL (1.0-4.8); ABS Monocytes 0.5 10^3/uL (0.0-0.9); ABS Neutrophils 26.8 10^3/uL (1.5-7.6); Anisocytosis 2+; Eosinophil % 1.2 %; Hemoglobin 9.5 g/dL (11.5-14.3); Lymphocyte % 1.4 %; Mean Corpuscular Hemoglobin 34.2 pg (27-33); Mean Corpuscular Hgb Conc 33.9 g/dL (31-36); Mean Platelet Volume 10.8 fL (7.5-11.2); Nucleated Red Blood Cells % 5.3 %/100WBC (0.0-0.8); Platelet Count 86 10^3/uL (150-450); Polychromasia 1+; Red Blood Count 2.77 10^6/uL (3.63-4.92); Toxic Granulation 1+; White Blood Count 28.2 10^3/uL (3.8-11.8)
[2023-01-16] MEDS: Hydrocortisone INJ 100 MG/2ML 2 ML VIAL IV SCH ×3 (06:03→20:54)
[2023-01-16] MEDS: Nystatin TOP POWDER 15 GM BTL TOPICAL SCH ×3 (09:49→21:43)
[2023-01-16] MEDS: Pantoprazole VIAL 40 MG VIAL IV SCH ×2 (09:49→20:54)
[2023-01-16] MEDS: Cefepime 2 GM in Dextrose 2 GM/50 ML BAG IV SCH ×2 (09:49→22:21)
[2023-01-16] MEDS: Nicotine PATCH 21 MG/24 HR PATCH TRANSDERM SCH (09:50)
[2023-01-16] MEDS: metroNIDAZOLE IV 500 MG/100ML 500 MG/100 ML BAG IVPB SCH ×2 (12:00→20:54)
[2023-01-16 13:47] LABS: Resp Rate 16
[2023-01-16 13:53] LABS: PCO2 Arterial 36 mmHg (35-45); PO2 Arterial 107 mmHg (80-100)
[2023-01-16 14:13] LABS: Calcium 7.3 mg/dL (8.6-10.3); Creatinine, Serum 1.49 mg/dL (0.51-0.95); eGFR CKD-EPI 40.7 (>60)
[2023-01-16 14:14] LABS: Magnesium 1.6 mg/dL (1.9-2.7); Potassium 5.5 mmol/L (3.5-5.0)
[2023-01-16] MEDS: SODIUM ZIRCONIUM CYCLOSILICATE 5 GM PACKET PO SCH (15:01)
[2023-01-16] MEDS ORDERED: Rocuronium 50 mg VIAL 10 mg/ml 5 ml VIAL (50 mg) ONE (19:54)
[2023-01-16] MEDS ORDERED: Magnesium Sulfate 2 gm BAG 2 GM/50 ML BAG IVPB ONE (19:56)
[2023-01-16] MEDS: fentaNYL INFUSION 50 mcg/mL VL 2,500 MCG/50 ML VIAL IV SCH (20:04)
[2023-01-16] MEDS ORDERED: Rocuronium 50 mg VIAL 10 mg/ml 5 ml VIAL (50 mg) IV ONE (20:33)
[2023-01-16 22:32] LABS: Body Fluid Total Nucleated 109 /mcL
[2023-01-16 23:11] LABS: Anion Gap 7 mmol/L (2-16); Blood Urea Nitrogen 54 mg/dL (6-24); CO2 Carbon Dioxide 19 mmol/L (22-32); Chloride 113 mmol/L (101-111); Creatinine, Serum 1.57 mg/dL (0.51-0.95); Glucose 159 mg/dL (70-100); Sodium 139 mmol/L (135-145); eGFR CKD-EPI 38.2 (>60)
[2023-01-16 23:23] LABS: Body Fluid Appearance Clear; Body Fluid Color Yellow; Body Fluid Mono 39 %; Body Fluid Other Cells 11; Body Fluid Source Pleural Fluid; Body Fluid Total Cells Counted 200
[2023-01-16 23:57] LABS: Potassium, Whole Blood 5.7 mmol/L (3.4-4.5)
[2023-01-17] MEDS: Vancomycin 750 MG in NS 0.9% 250 ML IVPB SCH ×2 (00:52→15:44)
[2023-01-17] MEDS: Acetaminophen IV 1 GM/100ML 1,000 MG/100 ML BAG IV SCH ×3 (00:53→17:37)
[2023-01-17] MEDS: Phenylephrine DRIP 0.2 MG/ML in NS 0.9% 250 ML (PHA mix) IV SCH ×4 (00:56→20:57)
[2023-01-17] MEDS: Propofol 10 mg/ml 100 ML BTL 1,000 MG/100 ML BTL IV SCH ×6 (01:49→22:08)
[2023-01-17] MEDS: Chlorhexidine MOUTHWASH 0.12% 15 ML UDC TOPICAL SCH ×6 (02:13→21:01)
[2023-01-17] MEDS: metroNIDAZOLE IV 500 MG/100ML 500 MG/100 ML BAG IVPB SCH ×3 (04:36→20:57)
[2023-01-17] MEDS: Hydrocortisone INJ 100 MG/2ML 2 ML VIAL IV SCH (04:38)
[2023-01-17 05:11] LABS: Hematocrit 29.5 % (35-45); Hemoglobin 10.3 g/dL (11.5-14.3); Mean Corpuscular Hemoglobin 35.5 pg (27-33); Mean Corpuscular Hgb Conc 34.8 g/dL (31-36); Red Cell Distribution Width 22.3 % (12-17); White Blood Count 36.7 10^3/uL (3.8-11.8)
[2023-01-17 06:18] LABS: ALT 87 U/L (7-52); Albumin 2.8 g/dL (3.2-5.2); Albumin/Globulin Ratio 2.3 (1-3); Alkaline Phosphatase 129 U/L (35-149); Blood Urea Nitrogen 60 mg/dL (6-24); CO2 Carbon Dioxide 19 mmol/L (22-32); Calcium 6.8 mg/dL (8.6-10.3); Chloride 112 mmol/L (101-111); Creatinine, Serum 1.66 mg/dL (0.51-0.95); Globulin 1.2 g/dL (2-4); Glucose 161 mg/dL (70-100); Phosphorus 7.2 mg/dL (2.5-5.0); Sodium 137 mmol/L (135-145); Total Bilirubin 3.3 mg/dL (0.2-1.0); eGFR CKD-EPI 35.8 (>60)
[2023-01-17 06:25] LABS: ABS Basophils 0.3 10^3/uL (0.0-0.1); ABS Eosinophils 0.2 10^3/uL (0.0-0.5); ABS Lymphocytes 0.9 10^3/uL (1.0-4.8); ABS Monocytes 0.6 10^3/uL (0.0-0.9); ABS Neutrophils 34.7 10^3/uL (1.5-7.6); ABS Nucleated RBC 0.89 10^3/ul; Anisocytosis 2+; Eosinophil % 0.5 %; Lymphocyte % 2.5 %; Macrocytosis 1+; Mean Platelet Volume 11.1 fL (7.5-11.2); Nucleated Red Blood Cells % 2.4 %/100WBC (0.0-0.8); Platelet Count 70 10^3/uL (150-450); Polychromasia 2+; Tear Drop Cells 1+
[2023-01-17 06:39] LABS: Potassium, Whole Blood 8.4 mmol/L (3.4-4.5)
[2023-01-17] MEDS ORDERED: CALCIUM GLUCONATE 1GM/50ML NS 1 GM/50 ML BAG IV ONE (06:45)
[2023-01-17] MEDS ORDERED: Dextrose 50% Syringe 50 ml 25 GM/50 ML SYRINGE IV PUSH ONE (07:08)
[2023-01-17] MEDS ORDERED: Sodium Polystyrene ORAL.SUSP 15 GM/60 ML BTL PO ONE (07:43)
[2023-01-17] MEDS: Nicotine PATCH 21 MG/24 HR PATCH TRANSDERM SCH (07:53)
[2023-01-17] MEDS: Pantoprazole VIAL 40 MG VIAL IV SCH ×2 (08:04→21:00)
[2023-01-17] MEDS: Nystatin TOP POWDER 15 GM BTL TOPICAL SCH ×3 (08:45→21:01)
[2023-01-17] MEDS: Cefepime 2 GM in Dextrose 2 GM/50 ML BAG IV SCH ×2 (08:50→22:10)
[2023-01-17] MEDS ORDERED: Norepinephrine 4 MG/250mL NS 4,000 MCG/250 ML BAG IV SCH (09:00)
[2023-01-17] MEDS: SODIUM ZIRCONIUM CYCLOSILICATE 5 GM PACKET PO SCH (10:04)
[2023-01-17] MEDS ORDERED: Anidulafungin 200 MG in NS 0.9% 250 ml 200 ML IVPB ONE (10:54)
[2023-01-17] MEDS: Dexamethasone IV 4 MG/ML VIAL 1 ml VIAL IV SLOW PU SCH ×2 (11:22→21:00)
[2023-01-17] MEDS ORDERED: Vancomycin Trough Check NOTE FOLLOW UP ONE (11:30)
[2023-01-17] MEDS ORDERED: Norepinephrine 4 MG/250mL D5W 4,000 MCG/250 ML BAG IV SCH (11:39)
[2023-01-17 12:23] LABS: Blood Urea Nitrogen 65 mg/dL (6-24); CO2 Carbon Dioxide 19 mmol/L (22-32); Calcium 7.1 mg/dL (8.6-10.3); Chloride 112 mmol/L (101-111); Creatinine, Serum 2.12 mg/dL (0.51-0.95); Glucose 144 mg/dL (70-100); Sodium 140 mmol/L (135-145); eGFR CKD-EPI 26.7 (>60)
[2023-01-17 12:31] LABS: Anion Gap 9 mmol/L (2-16)
[2023-01-17 12:44] LABS: Vancomycin Trough 24.6 mcg/mL
[2023-01-17] MEDS ORDERED: Magnesium Sulfate 2 gm BAG 2 GM/50 ML BAG IVPB PRN ×2 (12:44→16:36)
[2023-01-17] MEDS ORDERED: Sodium Phosphate IV 30 MMOL in NS 0.9% 250 ml 250 ML IV PRN ×2 (12:44→16:36)
[2023-01-17] MEDS ORDERED: NS 0.9% 1000 ml BAG 200 ML IV PRN ×2 (12:44→16:36)
[2023-01-17] MEDS ORDERED: Heparin 1,000 UNIT/ML 10 ml (10,000 UNITS) CATHLAB/DIALYSIS DIALYSIS PRN ×2 (12:44→15:34)
[2023-01-17] MEDS ORDERED: DEXTROSE DIALYSIS SCH (12:45)
[2023-01-17] MEDS ORDERED: HEPARIN DIALYSIS SCH (12:45)
[2023-01-17] MEDS: Enoxaparin 40 MG/0.4 ML SYR SUBCUT SCH (12:55)
[2023-01-17 12:56] LABS: Triglycerides 1638 mg/dL
[2023-01-17 12:58] LABS: Potassium, Whole Blood 5.6 mmol/L (3.4-4.5)
[2023-01-17 13:16] LABS: Cholesterol 127 mg/dL; HDL Cholesterol 9.6 mg/dL
[2023-01-17 13:36] LABS: Activated Partial Thrombo Time 52.4 seconds (26.0-38.0); INR 1.29 (0.83-1.13)
[2023-01-17 13:42] LABS: LDL Cholesterol Direct 36 mg/dL
[2023-01-17] MEDS: Heparin 1,000 UNIT/ML 10 ml (10,000 UNITS) CATHLAB/DIALYSIS DIALYSIS SCH ×6 (14:30→19:40)
[2023-01-17] MEDS: Norepinephrine *QUAD STRENGTH* 16 mg/250 mL NS (ICU ONLY) IV SCH ×2 (14:40→22:35)
[2023-01-17 14:48] LABS: Hematocrit 29.3 % (35-45); Hemoglobin 9.9 g/dL (11.5-14.3); Mean Corpuscular Hemoglobin 34.6 pg (27-33); Mean Corpuscular Hgb Conc 33.8 g/dL (31-36); Mean Corpuscular Volume 102.3 fL (80-97); Mean Platelet Volume 12.2 fL (7.5-11.2); Platelet Count 74 10^3/uL (150-450); Red Blood Count 2.87 10^6/uL (3.63-4.92); Red Cell Distribution Width 23.3 % (12-17); White Blood Count 38.3 10^3/uL (3.8-11.8)
[2023-01-17 15:06] LABS: Hepatitis B Surface Antigen Nonreactive (Nonreactive)
[2023-01-17 15:18] LABS: Potassium, Whole Blood 6.3 mmol/L (3.4-4.5)
[2023-01-17 15:19] LABS: Albumin 2.4 g/dL (3.2-5.2); Anion Gap 9 mmol/L (2-16); Blood Urea Nitrogen 64 mg/dL (6-24); CO2 Carbon Dioxide 18 mmol/L (22-32); Calcium 6.7 mg/dL (8.6-10.3); Chloride 114 mmol/L (101-111); Creatinine, Serum 2.12 mg/dL (0.51-0.95); Glucose 156 mg/dL (70-100); Sodium 141 mmol/L (135-145); eGFR CKD-EPI 26.7 (>60)
[2023-01-17 15:24] LABS: Hepatitis B Surface Ab Not Immune (Immune)
[2023-01-17] MEDS ORDERED: Dextrose 50% Syringe 50 ml 25 GM/50 ML SYRINGE IV PUSH PRN (15:31)
[2023-01-17 17:20] LABS: Albumin 2.9 g/dL (3.2-5.2); Blood Urea Nitrogen 51 mg/dL (6-24); CO2 Carbon Dioxide 20 mmol/L (22-32); Calcium 7.4 mg/dL (8.6-10.3); Chloride 107 mmol/L (101-111); Creatinine, Serum 1.97 mg/dL (0.51-0.95); Glucose 149 mg/dL (70-100); Sodium 136 mmol/L (135-145); eGFR CKD-EPI 29.1 (>60)
[2023-01-17 17:26] LABS: Potassium, Whole Blood 5.6 mmol/L (3.4-4.5)
[2023-01-17 17:33] LABS: Hematocrit 35.5 % (35-45); Hemoglobin 11.7 g/dL (11.5-14.3); Mean Corpuscular Hemoglobin 33.4 pg (27-33); Mean Corpuscular Hgb Conc 32.9 g/dL (31-36); Mean Corpuscular Volume 101.6 fL (80-97); Red Blood Count 3.49 10^6/uL (3.63-4.92); White Blood Count 38.3 10^3/uL (3.8-11.8)
[2023-01-17 17:38] LABS: Anion Gap 14 mmol/L (2-16); Blood Urea Nitrogen 48 mg/dL (6-24); CO2 Carbon Dioxide 18 mmol/L (22-32); Calcium 7.3 mg/dL (8.6-10.3); Chloride 106 mmol/L (101-111); Creatinine, Serum 1.86 mg/dL (0.51-0.95); Glucose 145 mg/dL (70-100); Sodium 138 mmol/L (135-145); eGFR CKD-EPI 31.2 (>60)
[2023-01-17 17:38] LABS: Anion Gap 9 mmol/L (2-16)
[2023-01-17 18:07] LABS: Platelet Count Platelets clumped. 10^3/uL (150-450)
[2023-01-17 18:09] LABS: Mean Platelet Volume 11.3 fL (7.5-11.2)
[2023-01-17 18:59] LABS: Anion Gap 14 mmol/L (2-16); Blood Urea Nitrogen 46 mg/dL (6-24); CO2 Carbon Dioxide 20 mmol/L (22-32); Calcium 7.2 mg/dL (8.6-10.3); Chloride 105 mmol/L (101-111); Glucose 127 mg/dL (70-100); Sodium 139 mmol/L (135-145); eGFR CKD-EPI 32.5 (>60)
[2023-01-17] MEDS ORDERED: Midazolam PREMIXBAG 1 MG/ML NS 100 ML IV SCH (19:20)
[2023-01-17 20:47] LABS: Blood Urea Nitrogen 41 mg/dL (6-24); CO2 Carbon Dioxide 19 mmol/L (22-32); Chloride 105 mmol/L (101-111); Creatinine, Serum 1.74 mg/dL (0.51-0.95); Glucose 120 mg/dL (70-100); Sodium 140 mmol/L (135-145); eGFR CKD-EPI 33.8 (>60)
[2023-01-17 20:50] LABS: Anion Gap 16 mmol/L (2-16)
[2023-01-17] MEDS ORDERED: Dexamethasone IV 4 MG/ML VIAL 1 ml VIAL IV SLOW PU SCH (21:00)
[2023-01-17 21:26] LABS: Potassium, Whole Blood 4.7 mmol/L (3.4-4.5)
[2023-01-17 21:34] LABS: Platelet Count 62 10^3/ul (150-450)
[2023-01-17 21:49] LABS: Blood Urea Nitrogen 45 mg/dL (6-24); CO2 Carbon Dioxide 20 mmol/L (22-32); Chloride 106 mmol/L (101-111); Creatinine, Serum 1.96 mg/dL (0.51-0.95); Glucose 157 mg/dL (70-100); Sodium 137 mmol/L (135-145); eGFR CKD-EPI 29.3 (>60)
[2023-01-17 21:53] LABS: Activated Partial Thrombo Time 65.8 seconds (26.0-38.0)
[2023-01-17 21:54] LABS: INR 1.56 (0.83-1.13)
[2023-01-17 22:00] LABS: Schistocytes ABSENT
[2023-01-17] MEDS ORDERED: Propofol 10 mg/ml 100 ML BTL 1,000 MG/100 ML BTL ONE (22:07)
[2023-01-17 22:25] LABS: Magnesium 1.8 mg/dL (1.9-2.7)
[2023-01-17 22:28] LABS: Anion Gap 11 mmol/L (2-16)
[2023-01-17] MEDS ORDERED: Vancomycin 1,500 MG in NS 0.9% 250 ml 250 ML IVPB ONE (23:00)
[2023-01-17 23:40] LABS: Anion Gap 11 mmol/L (2-16); Blood Urea Nitrogen 48 mg/dL (6-24); CO2 Carbon Dioxide 20 mmol/L (22-32); Calcium 6.6 mg/dL (8.6-10.3); Chloride 107 mmol/L (101-111); Creatinine, Serum 2.03 mg/dL (0.51-0.95); Glucose 208 mg/dL (70-100); Sodium 138 mmol/L (135-145); eGFR CKD-EPI 28.1 (>60)
[2023-01-18] MEDS: CALCIUM GLUCONATE 1GM/50ML NS 1 GM/50 ML BAG IV SCH ×2 (01:04→02:09)
[2023-01-18 01:45] LABS: Sodium 137 mmol/L (135-145)
[2023-01-18 01:46] LABS: Anion Gap 9 mmol/L (2-16); Blood Urea Nitrogen 51 mg/dL (6-24); CO2 Carbon Dioxide 20 mmol/L (22-32); Calcium 6.5 mg/dL (8.6-10.3); Chloride 108 mmol/L (101-111); Glucose 249 mg/dL (70-100); eGFR CKD-EPI 25.5 (>60)
[2023-01-18] MEDS: Chlorhexidine MOUTHWASH 0.12% 15 ML UDC TOPICAL SCH ×6 (02:09→20:07)
[2023-01-18] MEDS: metroNIDAZOLE IV 500 MG/100ML 500 MG/100 ML BAG IVPB SCH ×3 (03:15→20:06)
[2023-01-18 03:22] LABS: Potassium, Whole Blood 4.2 mmol/L (3.4-4.5)
[2023-01-18 03:41] LABS: Anion Gap 8 mmol/L (2-16); Blood Urea Nitrogen 53 mg/dL (6-24); CO2 Carbon Dioxide 21 mmol/L (22-32); Calcium 7.4 mg/dL (8.6-10.3); Chloride 108 mmol/L (101-111); Creatinine, Serum 2.23 mg/dL (0.51-0.95); Glucose 237 mg/dL (70-100); Sodium 137 mmol/L (135-145); eGFR CKD-EPI 25.1 (>60)
[2023-01-18 05:29] LABS: ABS Basophils 0.3 10^3/uL (0.0-0.1); ABS Eosinophils 0.1 10^3/uL (0.0-0.5); ABS Lymphocytes 1.7 10^3/uL (1.0-4.8); ABS Monocytes 0.6 10^3/uL (0.0-0.9); ABS Neutrophils 28.8 10^3/uL (1.5-7.6); ABS Nucleated RBC 0.82 10^3/ul; Anisocytosis 2+; Eosinophil % 0.2 %; Lymphocyte % 5.3 %; Nucleated Red Blood Cells % 2.6 %/100WBC (0.0-0.8); Polychromasia 1+
[2023-01-18 05:33] LABS: Hematocrit 29.6 % (35-45); Hemoglobin 9.7 g/dL (11.5-14.3); Mean Corpuscular Hemoglobin 33.2 pg (27-33); Mean Corpuscular Volume 100.8 fL (80-97); Red Blood Count 2.93 10^6/uL (3.63-4.92); Red Cell Distribution Width 22.7 % (12-17); White Blood Count 31.4 10^3/uL (3.8-11.8)
[2023-01-18 05:34] LABS: Mean Platelet Volume 11.6 fL (7.5-11.2); Platelet Count 44 10^3/uL (150-450)
[2023-01-18 05:38] LABS: ALT 70 U/L (7-52); Albumin 2.2 g/dL (3.2-5.2); Albumin/Globulin Ratio 1.7 (1-3); Alkaline Phosphatase 171 U/L (35-149); Anion Gap 7 mmol/L (2-16); Blood Urea Nitrogen 56 mg/dL (6-24); CO2 Carbon Dioxide 22 mmol/L (22-32); Calcium 7.3 mg/dL (8.6-10.3); Chloride 109 mmol/L (101-111); Creatinine, Serum 2.37 mg/dL (0.51-0.95); Globulin 1.3 g/dL (2-4); Glucose 221 mg/dL (70-100); Magnesium 2.4 mg/dL (1.9-2.7); Sodium 138 mmol/L (135-145); Total Bilirubin 5.7 mg/dL (0.2-1.0); Total Protein 3.5 g/dL (6.4-8.9); eGFR CKD-EPI 23.3 (>60)
[2023-01-18 05:42] LABS: Anion Gap 8 mmol/L (2-16); Blood Urea Nitrogen 57 mg/dL (6-24); CO2 Carbon Dioxide 22 mmol/L (22-32); Calcium 7.1 mg/dL (8.6-10.3); Chloride 109 mmol/L (101-111); Creatinine, Serum 2.35 mg/dL (0.51-0.95); Glucose 214 mg/dL (70-100); Sodium 139 mmol/L (135-145); eGFR CKD-EPI 23.6 (>60)
[2023-01-18] MEDS ORDERED: Vancomycin Trough Check NOTE FOLLOW UP ONE (06:00)
[2023-01-18] MEDS ORDERED: Heparin 1,000 UNIT/ML 10 ml (10,000 UNITS) CATHLAB/DIALYSIS DIALYSIS PRN (06:44)
[2023-01-18 07:20] LABS: Vancomycin Random 34.9 mcg/mL
[2023-01-18] MEDS: Dexamethasone IV 4 MG/ML VIAL 1 ml VIAL IV SLOW PU SCH ×2 (08:25→20:07)
[2023-01-18] MEDS: Cefepime 2 GM in Dextrose 2 GM/50 ML BAG IV SCH ×2 (08:26→21:14)
[2023-01-18] MEDS: Nicotine PATCH 21 MG/24 HR PATCH TRANSDERM SCH (08:26)
[2023-01-18] MEDS: SODIUM ZIRCONIUM CYCLOSILICATE 5 GM PACKET PO SCH (08:26)
[2023-01-18] MEDS: Pantoprazole VIAL 40 MG VIAL IV SCH ×2 (08:26→20:06)
[2023-01-18] MEDS: Nystatin TOP POWDER 15 GM BTL TOPICAL SCH ×3 (08:26→20:07)
[2023-01-18] MEDS: Heparin 1,000 UNIT/ML 10 ml (10,000 UNITS) CATHLAB/DIALYSIS DIALYSIS SCH ×9 (08:49→17:29)
[2023-01-18] MEDS ORDERED: VASOPRESSIN IVPREMIX BTL 40 UNIT/100 ML BTL IV ONE (09:13)
[2023-01-18] MEDS ORDERED: VASOPRESSIN IVPREMIX BTL 40 UNIT/100 ML BTL IV SCH (09:15)
[2023-01-18] MEDS: Norepinephrine *QUAD STRENGTH* 16 mg/250 mL NS (ICU ONLY) IV SCH (09:28)
[2023-01-18] MEDS ORDERED: Albumin Human 25% 25 GM/100 ML BTL IV ONE (09:44)
[2023-01-18 10:17] LABS: C Reactive Protein 313.47 mg/L (<8.01)
[2023-01-18] MEDS: fentaNYL INFUSION 50 mcg/mL VL 2,500 MCG/50 ML VIAL IV SCH (10:20)
[2023-01-18 11:46] LABS: ALT 80 U/L (7-52); Albumin 2.4 g/dL (3.2-5.2); Albumin/Globulin Ratio 1.6 (1-3); Alkaline Phosphatase 255 U/L (35-149); Anion Gap 11 mmol/L (2-16); Blood Urea Nitrogen 44 mg/dL (6-24); CO2 Carbon Dioxide 22 mmol/L (22-32); Calcium 7.3 mg/dL (8.6-10.3); Chloride 107 mmol/L (101-111); Creatinine, Serum 2.04 mg/dL (0.51-0.95); Globulin 1.5 g/dL (2-4); Glucose 146 mg/dL (70-100); Sodium 140 mmol/L (135-145); Total Bilirubin 7.7 mg/dL (0.2-1.0); Total Protein 3.9 g/dL (6.4-8.9); eGFR CKD-EPI 27.9 (>60)
[2023-01-18] MEDS: Anidulafungin 100 MG in NS 0.9% 100 ml BAG 100 ML IVPB SCH (12:01)
[2023-01-18 12:39] LABS: Potassium, Whole Blood 3.5 mmol/L (3.4-4.5)
[2023-01-18 13:24] LABS: Erythrocyte Sed Rate 10 mm/Hr (0-29)
[2023-01-18 13:53] LABS: Lactate Dehydrogenase, BF 277 U/L
[2023-01-18 15:23] LABS: Fluid Type, Protein, Total Pleural fluid; Glucose, BF 175 mg/dL; Total Protein, BF 1.2 g/dL
[2023-01-18] MEDS ORDERED: Vancomycin Random Level NOTE FOLLOW UP ONE (20:00)
[2023-01-18 20:43] LABS: Calcium 6.9 mg/dL (8.6-10.3); Creatinine, Serum 2.05 mg/dL (0.51-0.95); Magnesium 1.8 mg/dL (1.9-2.7); Phosphorus 5.1 mg/dL (2.5-5.0); Potassium 3.2 mmol/L (3.5-5.0); eGFR CKD-EPI 27.8 (>60)
[2023-01-19] MEDS: Chlorhexidine MOUTHWASH 0.12% 15 ML UDC TOPICAL SCH ×6 (01:10→21:04)
[2023-01-19] MEDS: Norepinephrine *QUAD STRENGTH* 16 mg/250 mL NS (ICU ONLY) IV SCH (02:19)
[2023-01-19] MEDS: metroNIDAZOLE IV 500 MG/100ML 500 MG/100 ML BAG IVPB SCH ×3 (03:51→20:43)
[2023-01-19 04:19] LABS: Potassium, Whole Blood 3.3 mmol/L (3.4-4.5)
[2023-01-19 04:28] LABS: Hematocrit 27.7 % (35-45); Hemoglobin 9.3 g/dL (11.5-14.3); Mean Corpuscular Hemoglobin 33.6 pg (27-33); Mean Corpuscular Hgb Conc 33.6 g/dL (31-36); Mean Corpuscular Volume 99.9 fL (80-97); Mean Platelet Volume 12.6 fL (7.5-11.2); Platelet Count 29 10^3/uL (150-450); Red Blood Count 2.77 10^6/uL (3.63-4.92); White Blood Count 26.7 10^3/uL (3.8-11.8)
[2023-01-19 04:49] LABS: Potassium 3.4 mmol/L (3.5-5.0)
[2023-01-19 04:50] LABS: Phosphorus 4.9 mg/dL (2.5-5.0)
[2023-01-19 04:51] LABS: Albumin 2.1 g/dL (3.2-5.2); Albumin/Globulin Ratio 1.5 (1-3); Creatinine, Serum 2.54 mg/dL (0.51-0.95); Globulin 1.4 g/dL (2-4); Magnesium 1.9 mg/dL (1.9-2.7); Total Bilirubin 7.2 mg/dL (0.2-1.0); Total Protein 3.5 g/dL (6.4-8.9); eGFR CKD-EPI 21.5 (>60)
[2023-01-19 04:54] LABS: ABS Basophils 0.2 10^3/uL (0.0-0.1); ABS Lymphocytes 0.6 10^3/uL (1.0-4.8); ABS Neutrophils 24.8 10^3/uL (1.5-7.6); ABS Nucleated RBC 0.62 10^3/ul; Anisocytosis 3+; Eosinophil % 0.1 %; Lymphocyte % 2.3 %; Nucleated Red Blood Cells % 2.3 %/100WBC (0.0-0.8); Polychromasia 1+
[2023-01-19] MEDS ORDERED: KCL 20 MEQ/100 ML IVPREMIX 20 MEQ/100 ML BAG IV ONE (06:04)
[2023-01-19] MEDS ORDERED: Magnesium Sulfate IV 1GM/100ML 1 GM/100 ML BAG IV ONE (06:07)
[2023-01-19] MEDS: Pantoprazole VIAL 40 MG VIAL IV SCH ×2 (09:05→19:56)
[2023-01-19] MEDS: Dexamethasone IV 4 MG/ML VIAL 1 ml VIAL IV SLOW PU SCH ×2 (09:05→19:56)
[2023-01-19] MEDS: Cefepime 2 GM in Dextrose 2 GM/50 ML BAG IV SCH ×2 (09:05→19:53)
[2023-01-19] MEDS: Nystatin TOP POWDER 15 GM BTL TOPICAL SCH ×3 (09:06→21:04)
[2023-01-19] MEDS: Nicotine PATCH 21 MG/24 HR PATCH TRANSDERM SCH (09:06)
[2023-01-19] MEDS ORDERED: Tocilizumab 200 MG/10 ML 10 ml VIAL IVPB ONE (09:40)
[2023-01-19 09:45] LABS: C Reactive Protein 177.9 mg/L (<8.01)
[2023-01-19] MEDS ORDERED: TOCILIZUMAB IVPB ONE (11:00)
[2023-01-19] MEDS ORDERED: NS 0.9% IVPB ONE (11:00)
[2023-01-19] MEDS: Anidulafungin 100 MG in NS 0.9% 100 ml BAG 100 ML IVPB SCH (12:12)
[2023-01-19 13:34] LABS: Calcium 6.8 mg/dL (8.6-10.3); Creatinine, Serum 2.76 mg/dL (0.51-0.95); Magnesium 2.2 mg/dL (1.9-2.7); eGFR CKD-EPI 19.4 (>60)
[2023-01-19 14:21] LABS: Potassium 3.3 mmol/L (3.5-5.0)
[2023-01-19] MEDS: Heparin 1,000 UNIT/ML 10 ml (10,000 UNITS) CATHLAB/DIALYSIS DIALYSIS SCH ×3 (20:57→23:00)
[2023-01-19] MEDS ORDERED: Acetaminophen IV 1 GM/100ML 1,000 MG/100 ML BAG IV ONE (21:32)
[2023-01-20] MEDS: Heparin 1,000 UNIT/ML 10 ml (10,000 UNITS) CATHLAB/DIALYSIS DIALYSIS SCH ×4 (00:03→03:31)
[2023-01-20] MEDS: Chlorhexidine MOUTHWASH 0.12% 15 ML UDC TOPICAL SCH ×6 (02:23→20:27)
[2023-01-20] MEDS: Norepinephrine *QUAD STRENGTH* 16 mg/250 mL NS (ICU ONLY) IV SCH (02:46)
[2023-01-20] MEDS: metroNIDAZOLE IV 500 MG/100ML 500 MG/100 ML BAG IVPB SCH ×3 (04:40→20:27)
[2023-01-20 05:16] LABS: Hematocrit 26.8 % (35-45); Mean Corpuscular Hemoglobin 33.3 pg (27-33); Mean Corpuscular Hgb Conc 33.8 g/dL (31-36); Mean Corpuscular Volume 98.7 fL (80-97); Red Blood Count 2.71 10^6/uL (3.63-4.92); Red Cell Distribution Width 22.2 % (12-17); White Blood Count 25.2 10^3/uL (3.8-11.8)
[2023-01-20 05:31] LABS: Potassium 3.2 mmol/L (3.5-5.0)
[2023-01-20 05:32] LABS: Phosphorus 4.3 mg/dL (2.5-5.0)
[2023-01-20 05:35] LABS: Albumin 2.3 g/dL (3.2-5.2); Albumin/Globulin Ratio 1.6 (1-3); Calcium 7.2 mg/dL (8.6-10.3); Creatinine, Serum 2.32 mg/dL (0.51-0.95); Globulin 1.4 g/dL (2-4); Magnesium 1.8 mg/dL (1.9-2.7); Total Bilirubin 6.3 mg/dL (0.2-1.0); Total Protein 3.7 g/dL (6.4-8.9); eGFR CKD-EPI 23.9 (>60)
[2023-01-20 05:49] LABS: Mean Platelet Volume 12.8 fL (7.5-11.2); Platelet Count 28 10^3/uL (150-450)
[2023-01-20 05:50] LABS: ABS Basophils 0.1 10^3/uL (0.0-0.1); ABS Lymphocytes 0.5 10^3/uL (1.0-4.8); ABS Monocytes 0.9 10^3/uL (0.0-0.9); ABS Neutrophils 23.8 10^3/uL (1.5-7.6); ABS Nucleated RBC 0.34 10^3/ul; Anisocytosis 2+; Basophilic Stippling 1+; Eosinophil % 0.1 %; Lymphocyte % 1.8 %; Nucleated Red Blood Cells % 1.4 %/100WBC (0.0-0.8); Polychromasia 1+; Tear Drop Cells 2+
[2023-01-20] MEDS: Nicotine PATCH 21 MG/24 HR PATCH TRANSDERM SCH (08:33)
[2023-01-20] MEDS: Dexamethasone IV 4 MG/ML VIAL 1 ml VIAL IV SLOW PU SCH ×2 (08:38→20:28)
[2023-01-20] MEDS: Cefepime 2 GM in Dextrose 2 GM/50 ML BAG IV SCH ×2 (08:38→20:27)
[2023-01-20] MEDS: Pantoprazole VIAL 40 MG VIAL IV SCH ×2 (08:38→20:28)
[2023-01-20] MEDS: Nystatin TOP POWDER 15 GM BTL TOPICAL SCH ×3 (08:39→20:34)
[2023-01-20] MEDS ORDERED: Vancomycin Random Level NOTE FOLLOW UP ONE (09:30)
[2023-01-20] MEDS ORDERED: Tocilizumab 200 MG/10 ML 10 ml VIAL IVPB ONE (10:49)
[2023-01-20 10:53] LABS: Blood Urea Nitrogen 63 mg/dL (6-24); CO2 Carbon Dioxide 23 mmol/L (22-32); Calcium 6.9 mg/dL (8.6-10.3); Chloride 101 mmol/L (101-111); Creatinine, Serum 2.74 mg/dL (0.51-0.95); Glucose 212 mg/dL (70-100); eGFR CKD-EPI 19.6 (>60)
[2023-01-20] MEDS: Anidulafungin 100 MG in NS 0.9% 100 ml BAG 100 ML IVPB SCH (10:56)
[2023-01-20 11:21] LABS: Sodium 135 mmol/L (135-145)
[2023-01-20] MEDS ORDERED: NS 0.9% IVPB ONE (11:30)
[2023-01-20] MEDS ORDERED: TOCILIZUMAB IVPB ONE (11:30)
[2023-01-20 11:40] LABS: Anion Gap 11 mmol/L (2-16)
[2023-01-20] MEDS: Lactulose 30 ml UDC NG TUBE SCH ×2 (14:32→20:27)
[2023-01-20 16:58] LABS: Potassium, Whole Blood 3.7 mmol/L (3.4-4.5)
[2023-01-20 17:33] LABS: Creatinine, Serum 3.05 mg/dL (0.51-0.95); eGFR CKD-EPI 17.2 (>60)
[2023-01-20] MEDS: NOREPINEPHRINE IV SCH (22:26)
[2023-01-20] MEDS: NS 0.9% IV SCH (22:26)
[2023-01-20] MEDS: [UNRECOGNIZED DRUG - OTHER] IV SCH (22:26)
[2023-01-20 23:04] LABS: ADAMTS13 Activity Assay 30 % (>/=70)
[2023-01-21] MEDS: Chlorhexidine MOUTHWASH 0.12% 15 ML UDC TOPICAL SCH ×6 (02:40→22:12)
[2023-01-21] MEDS: metroNIDAZOLE IV 500 MG/100ML 500 MG/100 ML BAG IVPB SCH ×3 (02:40→20:35)
[2023-01-21 05:13] LABS: Potassium, Whole Blood 3.1 mmol/L (3.4-4.5)
[2023-01-21 05:48] LABS: Glucose 194 mg/dL (70-100)
[2023-01-21 05:50] LABS: Albumin 2.3 g/dL (3.2-5.2); Albumin/Globulin Ratio 2.3 (1-3); Alkaline Phosphatase 497 U/L (35-149); Anion Gap 10 mmol/L (2-16); Blood Urea Nitrogen 93 mg/dL (6-24); CO2 Carbon Dioxide 22 mmol/L (22-32); Calcium 7.2 mg/dL (8.6-10.3); Chloride 101 mmol/L (101-111); Creatinine, Serum 3.65 mg/dL (0.51-0.95); Sodium 133 mmol/L (135-145); Total Bilirubin 1.6 mg/dL (0.2-1.0); Total Protein 3.3 g/dL (6.4-8.9); eGFR CKD-EPI 13.9 (>60)
[2023-01-21] MEDS: Heparin 1,000 UNIT/ML 10 ml (10,000 UNITS) CATHLAB/DIALYSIS DIALYSIS SCH ×7 (08:05→14:00)
[2023-01-21 08:19] LABS: ALT 89 U/L (7-52)
[2023-01-21 08:47] LABS: Hematocrit 22.9 % (35-45); Hemoglobin 8.4 g/dL (11.5-14.3); Mean Corpuscular Hemoglobin 36.4 pg (27-33); Mean Corpuscular Hgb Conc 36.8 g/dL (31-36); Red Blood Count 2.31 10^6/uL (3.63-4.92); Red Cell Distribution Width 22.3 % (12-17); White Blood Count 17.7 10^3/uL (3.8-11.8)
[2023-01-21 08:56] LABS: ABS Basophils 0.2 10^3/uL (0.0-0.1); ABS Monocytes 0.9 10^3/uL (0.0-0.9); ABS Neutrophils 15.6 10^3/uL (1.5-7.6); ABS Nucleated RBC 0.28 10^3/ul; Eosinophil % 0.1 %; Lymphocyte % 5.4 %; Mean Platelet Volume 12.9 fL (7.5-11.2); Nucleated Red Blood Cells % 1.6 %/100WBC (0.0-0.8); Platelet Count 29 10^3/uL (150-450)
[2023-01-21] MEDS: Nystatin TOP POWDER 15 GM BTL TOPICAL SCH ×3 (11:08→22:12)
[2023-01-21] MEDS: Pantoprazole VIAL 40 MG VIAL IV SCH ×2 (11:08→20:36)
[2023-01-21] MEDS: Dexamethasone IV 4 MG/ML VIAL 1 ml VIAL IV SLOW PU SCH ×2 (11:09→20:36)
[2023-01-21] MEDS: Nicotine PATCH 21 MG/24 HR PATCH TRANSDERM SCH (11:10)
[2023-01-21] MEDS: Lactulose 30 ml UDC NG TUBE SCH ×3 (11:10→22:08)
[2023-01-21] MEDS: Cefepime 2 GM in Dextrose 2 GM/50 ML BAG IV SCH ×2 (11:27→20:35)
[2023-01-21] MEDS: Anidulafungin 100 MG in NS 0.9% 100 ml BAG 100 ML IVPB SCH (12:03)
[2023-01-21 12:36] LABS: Potassium, Whole Blood 3.5 mmol/L (3.4-4.5)
[2023-01-21] MEDS: NS 0.9% IV SCH (13:12)
[2023-01-21] MEDS: NOREPINEPHRINE IV SCH (13:12)
[2023-01-21] MEDS: [UNRECOGNIZED DRUG - OTHER] IV SCH (13:12)
[2023-01-22] MEDS: Chlorhexidine MOUTHWASH 0.12% 15 ML UDC TOPICAL SCH ×6 (02:55→21:32)
[2023-01-22] MEDS: metroNIDAZOLE IV 500 MG/100ML 500 MG/100 ML BAG IVPB SCH ×3 (04:13→19:17)
[2023-01-22 04:39] LABS: Hematocrit 22.3 % (35-45); Hemoglobin 8.1 g/dL (11.5-14.3); Mean Corpuscular Hemoglobin 35.5 pg (27-33); Mean Corpuscular Hgb Conc 36.2 g/dL (31-36); Mean Corpuscular Volume 98.3 fL (80-97); Red Blood Count 2.27 10^6/uL (3.63-4.92); Red Cell Distribution Width 22.6 % (12-17); White Blood Count 15.2 10^3/uL (3.8-11.8)
[2023-01-22 05:05] LABS: ABS Basophils 0.1 10^3/uL (0.0-0.1); ABS Monocytes 0.8 10^3/uL (0.0-0.9); ABS Neutrophils 12.3 10^3/uL (1.5-7.6); ABS Nucleated RBC 0.48 10^3/ul; Eosinophil % 0.1 %; Lymphocyte % 13.1 %; Mean Platelet Volume 13.2 fL (7.5-11.2); Nucleated Red Blood Cells % 3.1 %/100WBC (0.0-0.8); Platelet Count 33 10^3/uL (150-450)
[2023-01-22 06:20] LABS: Magnesium 1.9 mg/dL (1.9-2.7); Phosphorus 4.7 mg/dL (2.5-5.0); Potassium 3.2 mmol/L (3.5-5.0)
[2023-01-22 06:23] LABS: Albumin 2.4 g/dL (3.2-5.2); Albumin/Globulin Ratio 2.7 (1-3); Creatinine, Serum 3.39 mg/dL (0.51-0.95); Globulin 0.9 g/dL (2-4); Total Bilirubin 2.9 mg/dL (0.2-1.0); Total Protein 3.3 g/dL (6.4-8.9); eGFR CKD-EPI 15.2 (>60)
[2023-01-22] MEDS: Nicotine PATCH 21 MG/24 HR PATCH TRANSDERM SCH (07:21)
[2023-01-22] MEDS: Heparin 1,000 UNIT/ML 10 ml (10,000 UNITS) CATHLAB/DIALYSIS DIALYSIS SCH (07:21)
[2023-01-22] MEDS: Nystatin TOP POWDER 15 GM BTL TOPICAL SCH ×3 (07:22→21:31)
[2023-01-22] MEDS: Dexamethasone IV 4 MG/ML VIAL 1 ml VIAL IV SLOW PU SCH ×2 (07:53→21:32)
[2023-01-22] MEDS: Pantoprazole VIAL 40 MG VIAL IV SCH ×2 (07:53→19:17)
[2023-01-22] MEDS: Lactulose 30 ml UDC NG TUBE SCH (07:54)
[2023-01-22] MEDS ORDERED: Bumetanide IV 0.25 MG/ML 4 ml VIAL (1 mg) IV SLOW PU ONE (08:36)
[2023-01-22] MEDS: Anidulafungin 100 MG in NS 0.9% 100 ml BAG 100 ML IVPB SCH (10:03)
[2023-01-22] MEDS: Bumetanide IV 10 MG in Premix IV 0 ML IV SCH ×2 (13:48→18:06)
[2023-01-22] MEDS: Albumin Human 25% 25 GM/100 ML BTL IV SCH ×2 (15:49→21:32)
[2023-01-23] MEDS: Chlorhexidine MOUTHWASH 0.12% 15 ML UDC TOPICAL SCH ×6 (02:57→22:23)
[2023-01-23] MEDS: Bumetanide IV 10 MG in Premix IV 0 ML IV SCH (02:58)
[2023-01-23] MEDS: Albumin Human 25% 25 GM/100 ML BTL IV SCH ×3 (03:00→16:12)
[2023-01-23] MEDS: metroNIDAZOLE IV 500 MG/100ML 500 MG/100 ML BAG IVPB SCH (04:00)
[2023-01-23] MEDS ORDERED: Bumetanide IV 10 MG in Premix IV 0 ML IV SCH (04:00)
[2023-01-23 04:01] LABS: Potassium 3.1 mmol/L (3.5-5.0)
[2023-01-23 04:02] LABS: Albumin 3.1 g/dL (3.2-5.2); Albumin/Globulin Ratio 3.4 (1-3); Calcium 7.3 mg/dL (8.6-10.3); Creatinine, Serum 4.44 mg/dL (0.51-0.95); Globulin 0.9 g/dL (2-4)
[2023-01-23 04:03] LABS: Hematocrit 15.5 % (35-45); Hemoglobin 5.5 g/dL (11.5-14.3); Mean Corpuscular Hemoglobin 35.4 pg (27-33); Mean Corpuscular Hgb Conc 35.5 g/dL (31-36); Mean Corpuscular Volume 99.9 fL (80-97); Mean Platelet Volume 13.8 fL (7.5-11.2); Platelet Count 32 10^3/uL (150-450); Red Blood Count 1.55 10^6/uL (3.63-4.92); Red Cell Distribution Width 22.4 % (12-17); White Blood Count 14.4 10^3/uL (3.8-11.8)
[2023-01-23] MEDS: Heparin 1,000 UNIT/ML 10 ml (10,000 UNITS) CATHLAB/DIALYSIS DIALYSIS SCH (08:00)
[2023-01-23] MEDS: Nicotine PATCH 21 MG/24 HR PATCH TRANSDERM SCH (08:00)
[2023-01-23] MEDS: Dexamethasone IV 4 MG/ML VIAL 1 ml VIAL IV SLOW PU SCH ×2 (09:46→22:23)
[2023-01-23] MEDS: Pantoprazole VIAL 40 MG VIAL IV SCH ×2 (09:48→22:23)
[2023-01-23] MEDS: Nystatin TOP POWDER 15 GM BTL TOPICAL SCH ×3 (09:49→22:23)
[2023-01-23] MEDS: Anidulafungin 100 MG in NS 0.9% 100 ml BAG 100 ML IVPB SCH (11:40)
[2023-01-23 12:20] LABS: Hematocrit 18.7 % (35-45); Hemoglobin 6.5 g/dL (11.5-14.3)
[2023-01-23] MEDS ORDERED: Furosemide 100 mg/10 ml IV VIAL IV ONE (13:32)
[2023-01-23] MEDS ORDERED: FUROSEMIDE IV ONE (14:00)
[2023-01-23] MEDS: Lactulose 30 ml UDC NG TUBE SCH ×2 (14:25→22:23)
[2023-01-24] MEDS: Chlorhexidine MOUTHWASH 0.12% 15 ML UDC TOPICAL SCH ×4 (03:01→16:22)
[2023-01-24 06:58] LABS: Hematocrit 17.3 % (35-45); Hemoglobin 6.1 g/dL (11.5-14.3); Mean Corpuscular Hemoglobin 33.7 pg (27-33); Mean Corpuscular Hgb Conc 35.1 g/dL (31-36); Mean Platelet Volume 13.9 fL (7.5-11.2); Platelet Count 33 10^3/uL (150-450); Red Blood Count 1.81 10^6/uL (3.63-4.92); Red Cell Distribution Width 20.8 % (12-17); White Blood Count 17.8 10^3/uL (3.8-11.8)
[2023-01-24 07:26] LABS: Anion Gap 18 mmol/L (2-16); CO2 Carbon Dioxide 18 mmol/L (22-32); Calcium 7.6 mg/dL (8.6-10.3); Chloride 104 mmol/L (101-111); Glucose 206 mg/dL (70-100); Sodium 140 mmol/L (135-145)
[2023-01-24 07:27] LABS: ALT 59 U/L (7-52); Albumin 3.5 g/dL (3.2-5.2); Albumin/Globulin Ratio 4.4 (1-3); Alkaline Phosphatase 256 U/L (35-149); Creatinine, Serum 5.39 mg/dL (0.51-0.95); Globulin 0.8 g/dL (2-4); Total Bilirubin 1.8 mg/dL (0.2-1.0); Total Protein 4.3 g/dL (6.4-8.9); eGFR CKD-EPI 8.7 (>60)
[2023-01-24 07:42] LABS: Blood Urea Nitrogen 169 mg/dL (6-24)
[2023-01-24] MEDS: Dexamethasone IV 4 MG/ML VIAL 1 ml VIAL IV SLOW PU SCH (08:46)
[2023-01-24] MEDS: Pantoprazole VIAL 40 MG VIAL IV SCH (08:46)
[2023-01-24] MEDS: Lactulose 30 ml UDC NG TUBE SCH ×2 (08:47→16:22)
[2023-01-24] MEDS: Heparin 1,000 UNIT/ML 10 ml (10,000 UNITS) CATHLAB/DIALYSIS DIALYSIS SCH (09:08)
[2023-01-24] MEDS: Nystatin TOP POWDER 15 GM BTL TOPICAL SCH ×2 (09:17→16:22)
[2023-01-24 09:25] LABS: ABS Lymphocytes 0.8 10^3/uL (1.0-4.8); ABS Monocytes 0.6 10^3/uL (0.0-0.9); ABS Neutrophils 16.5 10^3/uL (1.5-7.6); ABS Nucleated RBC 0.68 10^3/ul; Anisocytosis 2+; Lymphocyte % 4.3 %; Nucleated Red Blood Cells % 3.8 %/100WBC (0.0-0.8); Polychromasia 1+
[2023-01-24 09:59] LABS: Potassium Redraw 3.6 mmol/L (3.5-5.0)
[2023-01-24] MEDS: Anidulafungin 100 MG in NS 0.9% 100 ml BAG 100 ML IVPB SCH (10:48)
[2023-01-24 12:22] VITALS: BP 125/54
[2023-01-24] MEDS ORDERED: Acetaminophen IV 1 GM/100ML 1,000 MG/100 ML BAG IV PRN ×2 (13:07→13:26)
[2023-01-24] MEDS ORDERED: Lorazepam PYXIS KEY PRN (14:52)
[2023-01-24] MEDS ORDERED: Morphine PCA ADULT 5 MG/ML 30 ML PCA SCH (15:00)
[2023-01-24] MEDS ORDERED: Morphine 10 MG/ML VIAL (1 ml) IV ONE (15:00)
[2023-01-24] MEDS: LORazepam 2 mg VIAL 1 ml IV PUSH SCH ×4 (16:11→18:39)
== END 2023-01-24 17:57 | disposition expired | DRG 660 ==
LOC: CHOA 11:48 → SUATTDRO 15:32 → MED 15:32 → ICU 01-08 14:22 → MED 01-11 10:46 → ICU 01-15 10:14
PROVIDERS: ADMIT Internal Medicine Hematology & Oncology; ATTEND Internal Medicine Pulmonary Disease